=== PATIENT | female | born 1970 | race Caucasian/White ===

== ENCOUNTER 2019-12-27 10:35 | Outpatient (REF) | payer BC, SELFPAY | END 2019-12-27 10:36 | disposition home or self-care (01) | LOC: HO.LNP 10:35 | PROVIDERS: Visit Provider Hospitalist | DX: Z20.828 Contact with and (suspected) exposure to other viral communicable diseases (principal) | CPT/HCPCS: U0003 ==

== ENCOUNTER 2021-05-07 10:26 | Outpatient (REF) | payer BC, SELFPAY ==
[2021-05-07 10:46] LABS: MANUAL DIFF FLAG NO
[2021-05-07 11:17] LABS: Basophils Absolute Auto 0.1 X10*3/uL (0.0-0.2); Basophils Percent Auto 1.1 % (0-2); Eosinophils Absolute Auto 0.4 X10*3/uL (0.0-0.4); Eosinophils Percent Auto 9.3 % (0-4); Hematocrit 41.3 % (37.0-47.0); Hemoglobin 13.4 g/dl (12.0-16.0); Imm Gran Abs Auto 0.02 X10*3/uL (0.00-0.03); Imm Gran Pct Auto 0.4 % (0.0-0.4); Lymphocytes Absolute Auto 1.3 X10*3/uL (1.2-4.9); Lymphocytes Percent Auto 27.5 % (20-40); Mean Corpuscular HGB Conc 32.4 g/dl (31.0-35.0); Mean Corpuscular Hemoglobin 30.7 pg (27.0-33.0); Mean Corpuscular Volume 94.5 fL (80.0-98.0); Mean Platelet Volume 9.5 fL (9.4-12.3); Monocytes Absolute Auto 0.5 X10*3/uL (0.1-1.2); Monocytes Percent Auto 10.1 % (2-11); Neutrophils Absolute Auto 2.3 x10*3/uL (2.0-8.3); Neutrophils Percent Auto 51.6 % (45-73); Platelet Count 229 X10*3/uL (160-400); Red Blood Count 4.37 X10*6/uL (4.20-5.50); Red Cell Distribution Width 12.9 % (11.0-16.0); White Blood Count 4.5 X10*3/uL (4.8-10.8)
[2021-05-07 12:28] LABS: Thyroid Stimulating Hormone 2.72 uIU/mL (0.32-4.0)
[2021-05-07 12:37] LABS: Alanine Aminotransferase 24 U/L (0-31); Albumin Level 4.4 g/dL (3.5-5.0); Alkaline Phosphatase 54 U/L (39-117); Anion Gap 12 (12-20); Aspartate Amino Transferase 19 U/L (5-31); Bilirubin Total 0.3 mg/dL (0.0-1.0); Blood Urea Nitrogen 20 mg/dL (9-16); Calcium 9.9 mg/dL (8.4-10.2); Carbon Dioxide 27 mmol/L (22-29); Chloride 102 mmol/L (96-108); Cholesterol 239 mg/dL; Estimated Glomerular Filt Rate > 60; Glucose Fasting 94 mg/dL (60-99); HDL Cholesterol 75 mg/dL; LDL Cholesterol Calculated 148 mg/dl; Potassium 4.3 mmol/L (3.3-5.1); Sodium 137 mmol/L (135-145); Total Protein 7.2 g/dL (6.5-8.0); Triglycerides 83 mg/dL
== END 2021-05-07 10:27 | disposition home or self-care (01) ==
LOC: HO.LAB 10:26
PROVIDERS: PCP Internal Medicine; Visit Provider Internal Medicine
DX: Z00.00 Encounter for general adult medical examination without abnormal findings (principal); Z13.0 Encounter for screening for diseases of the blood and blood-forming organs and certain disorders involving the immune mechanism
CPT/HCPCS: 36415; 80053; 80061; 84443; 85025

== ENCOUNTER 2022-05-13 08:15 | Day surgery (SDC) | payer BC, SELFPAY ==
[2022-05-13 06:17] VITALS: BMI 27.4
[2022-05-13] MEDS: Lactated Ringers 1,000 ML 100 ML IVCONT (08:17)
[2022-05-13 08:35] VITALS: BP 147/93; PULSE 93; RESP 18; TEMP 36.7; O2SAT 100
--- NOTE | 2022-05-13 08:45 | HO.ANESPROP2 ---
HPI - Anesthesia Eval Consult details Narrative: 51yo female patient for Colonoscopy PMFSH Active Problems Active Problems: All Active Problems (Updated 05/10/22 @ 13:40 by Carolina Blum RN) Depression (Acute) Encounter for screening laboratory testing for COVID-19 virus in asymptomatic patient (Acute) Physical exam, annual (Acute) Encounter for surveillance of abnormal nevi (Acute) Cerumen impaction (Acute) Infection of thumb (Acute) Anxiety (Acute) Past Medical History Medical History Anxiety Asthma IBS (irritable bowel syndrome) Family History Family History Father No problems noted. Mother No problems noted. Brother Menieres disease Sister Bipolar 1 disorder Family/Other Substance use disorder Mental health disorder Family history of problems with anesthesia: No Surgical History Surgical History H/O breast augmentation H/O section H/O umbilical hernia repair H/O: hysterectomy History of lumpectomy History of Problems with Anesthesia: No Social History Social History Housing: Condominium Alcohol intake: current Alcohol intake frequency: holidays/special occasions only Patient Tobacco Use Status: Never used Tobacco e-Cigarette/Vaping Use: Never Used Second Hand Smoke Exposure: No Substance Use Frequency: Daily Are you DNR?: No Advance Directives: No Advance Directives Information Provided: Yes Nutrition Risks: No Nutritional Risk service: No Current occupational status: employed Current occupational exposures/hazards: No Cognitive needs: No Hearing needs: No Vision needs: No Meds Allergies Allergy/AdvReac Type Severity Reaction Status Date / Time citalopram [Celexa] Allergy Intermediate undesired Verified 05/13/22 07:58 effect banana Allergy Anaphylaxis Verified 05/13/22 08:45 cat dander [cats] Allergy Unknown Verified 05/13/22 07:58 dog dander Allergy Unknown Verified 05/13/22 07:58 grass pollen Allergy Unknown Verified 05/13/22 07:58 tree and shrub pollen Allergy Unknown Verified 05/13/22 07:58 dust Allergy Unknown Uncoded 05/13/22 07:58 Active Medications: Current Medications Albuterol Sulfate (Albuterol Sulfate (0.083%) 2.5 Mg/3 Ml Vial.Neb) 2.5 mg INHALE ONCE PRN PRN Reason: Shortness of Breath/Wheezing Lactated Ringer's (Lr) 1,000 mls @ 100 mls/hr IVCONT .Q10H HEIDY Last Admin: 05/13/22 08:17 Dose: 100 mls/hr Sodium Biphosphate/Sodium Phosphate (Sodium Phosphate,[place]-Dibasic 133 Ml Enema) 133 ml CO ONCE PRN PRN Reason: Poor Colonoscopy Prep Results Home Medications Medication Instructions Recorded Confirmed Last Taken Type multivitamin 1 tab PO DAILY 12/13/19 05/13/22 Unknown History cetirizine 10 mg capsule (Zyrtec) 10 mg PO DAILY 12/27/19 05/13/22 Unknown History Exam Exam Date and Time: May 13, 2022 0845 Height,Weight and Vital Signs: Height 5 ft 6 in Weight 77.111 kg Last Vital Signs Temp 98.1 F 05/13/22 08:35 Pulse 93 05/13/22 08:35 Resp 18 05/13/22 08:35 BP 147/93 H 05/13/22 08:35 Pulse Ox 100 05/13/22 08:35 O2 Del Method 05/13/22 08:35 Airway Mallampati Class: II TM Dist: >3cm Neck ROM: Full Loose/Missing/Broken Teeth: No (Denies broken, loose, missing teeth) Heart: RRR Lungs: CTAB Assessment and Plan Assessment Anesthesia Assessment: Anesthesia Plan Discussed and Chart Reviewed Final Anesthetic Review Family History of Problems with Anesthesia: No History of Problems with Anesthesia: No NPO: Yes ASA Class: II Final Preanesthetic Review: No Changes in Pt Med Stat, Meds/Allgs Chart Reviewed, Consent Obtained/Reviewed and Anes Risks/Benef Reviewed Patient Risk: Low Procedure Risk: Low Assessment/Block/Sedation in SS: Assess/Block/Sedation-SS Anesthetic Plan Anesthetic Plan: MAC: Disposition: Standard PACU
--- NOTE | 2022-05-13 09:55 | PM.OP ---
Brief Operative Note Date of Service: 05/13/22 Pre-op diagnosis: Screening Post-op diagnosis: other (Diverticulosis) Procedure: Colonoscopy to the cecum and TI Surgeon: Jori Rios Anesthesia: MAC Was an Fire Prevention Chief used for this Procedure?: No Estimated blood loss (mL): 0 Pathology: none sent Condition: stable Disposition: PACU
[2022-05-13 09:57] VITALS: BP 121/70; PULSE 86; RESP 16; TEMP 36.6; O2SAT 99
[2022-05-13 10:12] VITALS: BP 153/72; PULSE 69; RESP 16; TEMP 36.3; O2SAT 100
--- NOTE | 2022-05-13 22:14 | OP_ITS ---
SURGEON: Jori Riso MD PREOPERATIVE DIAGNOSIS: Colorectal cancer screening. POSTOPERATIVE DIAGNOSIS: PROCEDURE PERFORMED: Colonoscopy to the cecum and terminal ileum. ESTIMATED BLOOD LOSS: COMPLICATIONS: ANESTHESIA: Monitored anesthesia care. ASSISTANTS: SPECIMENS: POSTOPERATIVE DIAGNOSES: Colorectal cancer screening, mild sigmoid diverticulosis and small internal hemorrhoids. INDICATION: The patient presents for evaluation of colorectal cancer screening. Full consent has been obtained from her for this, including risks of bleeding and perforation. DESCRIPTION OF PROCEDURE: The patient was placed in the left lateral decubitus position. The digital rectal exam revealed no abnormalities. The Olympus video pediatric colonoscope was entered into the rectum and advanced easily to the cecum. Once in the cecum, I did identify normal-appearing cecal pouch with appendiceal orifice and a normal-appearing ileocecal valve. The terminal ileum was cannulated and appeared normal. The scope was withdrawn back in the colon. The entire cecum and ileocecal valve appeared normal. The scope was slowly withdrawn assessing all mucosal surfaces carefully. Preparation was excellent. I did not visualize any sign of polyps, colitis, nor angiodysplasia. There was a mild amount of sigmoid diverticulosis. In the rectum, the scope was retroflexed, visualizing small internal hemorrhoids, but no other pathology. The rectal mucosa appeared normal. The scope was straightened out and withdrawn from the patient. She tolerated the procedure well and was returned to the recovery area in stable condition. IMPRESSION: 1. Mild diverticulosis. 2. Small internal hemorrhoids. PLAN: Given today's negative exam and no family history of colorectal cancer, I recommend a repeat colonoscopy in 10 years for further screening. She will otherwise see me on a p.r.n. basis. MD CHUCKY Layne/ADRI / [id number]
== END 2022-05-13 10:30 | disposition home or self-care (01) ==
PROVIDERS: PCP Internal Medicine; Visit Provider Internal Medicine
PROC: 0DJD8ZZ Inspection of Lower Intestinal Tract, Via Natural or Artificial Opening Endoscopic (ICD-10-PCS; CPT 45378; principal; 2022-05-13 09:30)
DX: Z12.11 Encounter for screening for malignant neoplasm of colon (principal); K57.30 Diverticulosis of large intestine without perforation or abscess without bleeding; K64.8 Other hemorrhoids; K58.1 Irritable bowel syndrome with constipation; J45.909 Unspecified asthma, uncomplicated; F41.8 Other specified anxiety disorders; Z79.51 Long term (current) use of inhaled steroids; Z79.899 Other long term (current) drug therapy
CPT/HCPCS: 45378; J2250

== ENCOUNTER 2022-07-30 08:54 | Outpatient (REF) | payer BC, SELFPAY ==
[2022-07-30 09:11] LABS: MANUAL DIFF FLAG NO
[2022-07-30 09:28] LABS: Basophils Absolute Auto 0.1 X10*3/uL (0.0-0.2); Basophils Percent Auto 1.1 % (0-2); Eosinophils Absolute Auto 0.5 X10*3/uL (0.0-0.4); Eosinophils Percent Auto 7.4 % (0-4); Hematocrit 42.5 % (37.0-47.0); Hemoglobin 13.8 g/dl (12.0-16.0); Imm Gran Abs Auto 0.04 X10*3/uL (0.00-0.03); Imm Gran Pct Auto 0.6 % (0.0-0.4); Lymphocytes Absolute Auto 1.5 X10*3/uL (1.2-4.9); Lymphocytes Percent Auto 23.7 % (20-40); Mean Corpuscular HGB Conc 32.5 g/dl (31.0-35.0); Mean Corpuscular Hemoglobin 30.5 pg (27.0-33.0); Mean Platelet Volume 9.5 fL (9.4-12.3); Monocytes Absolute Auto 0.6 X10*3/uL (0.1-1.2); Monocytes Percent Auto 8.6 % (2-11); Neutrophils Absolute Auto 3.8 x10*3/uL (2.0-8.3); Neutrophils Percent Auto 58.6 % (45-73); Platelet Count 254 X10*3/uL (160-400); Red Blood Count 4.52 X10*6/uL (4.20-5.50); Red Cell Distribution Width 12.6 % (11.0-16.0); White Blood Count 6.5 X10*3/uL (4.8-10.8)
[2022-07-30 10:02] LABS: Alanine Aminotransferase 36 U/L (0-31); Albumin Level 4.7 g/dL (3.5-5.0); Alkaline Phosphatase 63 U/L (39-117); Anion Gap 14 (12-20); Aspartate Amino Transferase 19 U/L (5-31); Bilirubin Total 0.6 mg/dL (0.0-1.0); Blood Urea Nitrogen 16 mg/dL (9-16); Calcium 9.6 mg/dL (8.4-10.2); Carbon Dioxide 26 mmol/L (22-29); Chloride 103 mmol/L (96-108); Cholesterol 297 mg/dL; Estimated Glomerular Filt Rate > 60; Glucose Fasting 101 mg/dL (60-99); HDL Cholesterol 74 mg/dL; LDL Cholesterol Calculated 199 mg/dl; Potassium 4.3 mmol/L (3.3-5.1); Sodium 139 mmol/L (135-145); Total Protein 7.7 g/dL (6.5-8.0); Triglycerides 121 mg/dL
[2022-07-30 10:12] LABS: Thyroid Stimulating Hormone 3.04 uIU/mL (0.32-4.0)
== END 2022-07-30 08:55 | disposition home or self-care (01) ==
LOC: HO.LAB 08:54
PROVIDERS: PCP Internal Medicine; Visit Provider Internal Medicine
DX: E78.5 Hyperlipidemia, unspecified (principal); D64.9 Anemia, unspecified; E03.9 Hypothyroidism, unspecified; N28.9 Disorder of kidney and ureter, unspecified
CPT/HCPCS: 36415; 80053; 80061; 84443; 85025

== ENCOUNTER 2022-08-28 13:35 | Outpatient (REF) | payer BC, SELFPAY | END 2022-08-28 13:36 | disposition home or self-care (01) | LOC: HO.LAB 13:35 | PROVIDERS: PCP Internal Medicine; Visit Provider Internal Medicine | DX: R10.9 Unspecified abdominal pain (principal); E03.9 Hypothyroidism, unspecified; N28.9 Disorder of kidney and ureter, unspecified; N39.0 Urinary tract infection, site not specified; E78.5 Hyperlipidemia, unspecified; D64.9 Anemia, unspecified | CPT/HCPCS: 36415; 80048; 80053; 80061; 84443; 85025; 87086 ==

== ENCOUNTER 2022-08-29 09:30 | Outpatient (REF) | payer BC, SELFPAY | END 2022-08-29 09:31 | disposition home or self-care (01) | LOC: HO.WFDLNP 09:30 | PROVIDERS: Visit Provider Internal Medicine | DX: R19.7 Diarrhea, unspecified (principal) | CPT/HCPCS: 87329; 87493; 89055 ==

== ENCOUNTER 2022-08-30 12:22 | Outpatient (REF) | payer BC, SELFPAY | END 2022-08-30 12:23 | disposition home or self-care (01) | LOC: HO.US 12:22 | PROVIDERS: PCP Internal Medicine; Visit Provider Internal Medicine | DX: R10.9 Unspecified abdominal pain (principal) | CPT/HCPCS: 76700 ==

== ENCOUNTER 2022-11-04 10:36 | Outpatient (AMB) | payer BC, SELFPAY ==
[2022-11-04 10:38] VITALS: BP 140/82; PULSE 65; O2SAT 98; BMI 29.4
--- NOTE | 2022-11-04 10:38 | A.OFFPC_ITS ---
Vital Signs 11/04/22 10:38 Height 5 ft 6 in Weight 182 lb BMI 29.4 BP 140/82 H Blood Pressure Location Lt brachial Position Sitting Pulse 65 Pulse Source Pulse Oximeter Pulse Oximetry (%) 98 Oxygen Delivery Method Room Air Intake Visit Reasons: 3mth f/u Investigator Internal Revenue: Not Required per policy Accompanied by: Self / Same As Patient Allergies citalopram [Celexa] Allergy (Intermediate, Verified 11/04/22 10:39) undesired effect banana Allergy (Verified 11/04/22 10:39) Anaphylaxis cat dander [cats] Allergy (Verified 11/04/22 10:39) Unknown dog dander Allergy (Verified 11/04/22 10:39) Unknown grass pollen Allergy (Verified 11/04/22 10:39) Unknown tree and shrub pollen Allergy (Verified 11/04/22 10:39) Unknown dust Allergy (Uncoded 11/04/22 10:39) Unknown Medication List - Last Reconciled 11/04/22 by Lloyd Mcmullen MD albuterol sulfate 90 mcg/actuation (ProAir HFA) 2 puffs inhalation Q6H PRN 30 days alprazolam 1 mg PO Q8H PRN cetirizine (Zyrtec) 10 mg PO DAILY citalopram 40 mg PO DAILY dicyclomine 20 mg PO QID multivitamin 1 tab PO DAILY Tobacco use date assessed: 07/30/22 Dental Screening Dental Screen Date: 11/04/22 Did you have a dental visit in the last 12 months?: Yes Did you have a dental problem in the last 6 months where you did not have access to dental care?: No Was dental information given to patient?: Patient has dentist HPI 3mth f/u HPI Details depression on Rx; doing well at this time; compliant with meds [facility] Medical History IBS (irritable bowel syndrome) Asthma Anxiety Surgical History H/O breast augmentation H/O umbilical hernia repair H/O: hysterectomy H/O section History of lumpectomy Family History Father No problems noted. Mother No problems noted. Brother Menieres disease Sister Bipolar 1 disorder Family/Other Substance use disorder Mental health disorder Social History Housing: Condominium Alcohol intake: current Alcohol intake frequency: holidays/special occasions only Patient Tobacco Use Status: Never used Tobacco e-Cigarette/Vaping Use: Never Used Second Hand Smoke Exposure: No service: No Current occupational status: employed Current occupational exposures/hazards: No Cognitive needs: No Hearing needs: No Vision needs: No Questionnaire PHQ-9 Over the last 2 weeks, how often have you been bothered by any of the following problems? 1. Little interest or pleasure in doing things: several days 2. Feeling down, depressed, or hopeless: more than half the days 3. Trouble falling or staying asleep, or sleeping too much: nearly every day 4. Feeling tired or having little energy: several days 5. Poor appetite or overeating: several days 6. Feeling bad about yourself - or that you are a failure or have let yourself or your family down: not at all 7. Trouble concentrating on things, such as reading the newspaper or watching television: more than half the days 8. Moving or speaking so slowly that other people could have noticed. Or the opposite - being so fidgety or restless that you have been moving around a lot more than usual: not at all 9. Thoughts that you would be better off or of hurting yourself in some way: not at all Total score: 10 Depression Screening Interpretation: Positive 20189 - PHQ-9 Billing: Yes Source: Developed by Drs. Jori Wagoner, Fozia Salcedo, Suraj Szymanski and colleagues, with an educational anthony from [employer]. Thrive Questionnaire Date Thrive assessed: 02/26/22 AUDIT C Alcohol Use Questionnaire (AUDIT-C) 1. How often do you have a drink containing alcohol?: 2-3 times a week 2. How many drinks containing alcohol do you have on a typical day when you are drinking?: 1 or 2 3. How often do you have six or more drinks on one occasion?: Never Total Score: 3 Score Reviewed/Action Taken: Yes BRICE-7 AMB Questionnaire BRICE-7 Date BRICE - 7 assessed: 02/26/22 Source: Developed by Drs. Jori Wagoner, Fozia Salcedo, Suraj Szymanski and colleagues, with an educational anthony from [employer]. BRICE-7 Assessment Billing BRICE-7 Assessment Tool: BRICE-7 Assessment 39693 Review of Systems Const Denies chills, Denies headache(s) and Denies weight loss ENT Denies headache(s) Card Denies chest pain, Denies syncope, Denies irregular heart rhythm and Denies dyspnea Resp Denies chest congestion, Denies cough and Denies dyspnea GI Denies abdominal pain, Denies change in stool character, Denies nausea and Denies vomiting Musc Denies deformity and Denies joint swelling Neuro Denies syncope and Denies headache(s) Physical exam (Primary Care) Vital Signs: Last Vital Signs Pulse 65 11/04/22 10:38 BP 140/82 H 11/04/22 10:38 Pulse Ox 98 11/04/22 10:38 Oxygen Delivery Method Room Air 11/04/22 10:38 BMI result Body Mass Index 29.4 Tobacco/Smoking Status: Tobacco use Status Tobacco use date assessed 07/30/22 11/04/22 10:42 Patient Tobacco Use Status Never used Tobacco 11/04/22 10:42 e-Cigarette/Vaping Use Never Used 11/04/22 10:42 PHQ-9: PHQ-9 Score PHQ-9: Total score 10 11/04/22 10:42 Depression Screening Interpretation: Positive Thrive Assessment: Date of Thrive Assessment Date Thrive assessed 02/26/22 11/04/22 10:42 Const General: cooperative, comfortable, no acute distress and alert Neck Neck: Yes no lymphadenopathy Thyroid: Thyroid normal Resp Effort & Inspection: normal respiratory effort Auscultation: clear to auscultation bilaterally Percussion: percussion normal Cardio Jugular venous distension: no JVD Palpation: normal PMI Rate: regular rate Rhythm: regular rhythm Heart sounds: S1 normal heart sound present and S2 normal heart sound present GI Inspection: Yes normal to inspection Palpation (GI): No hepatosplenomegaly present Skin General skin exam: no rashes or lesions noted Extrem General: Yes no clubbing, cyanosis or edema Assessment and Plan Assessment & Plan (1) Depression: Code(s): F32.9 - Major depressive disorder, single episode, unspecified Plan: stable; same rx Orders: Orders Lipid Panel Today E78.5 - Hyperlipidemia, unspecified Comprehensive Roy. Panel Fast Today N28.9 - Disorder of kidney and ureter, unspecified Complete Blood Count Auto Diff Today D64.9 - Anemia, unspecified Thyroid Stimulating Hormone Today E03.9 - Hypothyroidism, unspecified Coding Level of Care Code Est Pt Level 3 (24465) Diagnoses Depression F32.9 Additional Codes BRICE-7 Assessment Billing - BRICE-7 Assessment Tool: BRICE-7 Assessment 58002 ([id number])
== END 2022-11-04 11:06 | disposition home or self-care (01) ==
PROVIDERS: PCP Internal Medicine; Visit Provider Internal Medicine
DX: F32.9 Major depressive disorder, single episode, unspecified (principal)
CPT/HCPCS: 99213

== ENCOUNTER 2023-02-03 10:29 | Outpatient (AMB) | payer BC, SELFPAY ==
[2023-02-03 10:32] VITALS: BP 144/82; PULSE 70; O2SAT 98; BMI 28.1
--- NOTE | 2023-02-03 10:32 | MHC.PC.OV ---
Vital Signs 02/03/23 10:32 Height 5 ft 6 in Weight 174 lb BMI 28.1 BP 144/82 H Blood Pressure Location Lt brachial Position Sitting Pulse 70 Pulse Source Pulse Oximeter Pulse Oximetry (%) 98 Oxygen Delivery Method Room Air Intake Visit Reasons: 3mth f/u Television Program Director Required: No Manager Business Intelligence: Not Required per policy Accompanied by: Self / Same As Patient Allergies citalopram [Celexa] Allergy (Intermediate, Verified 02/03/23 10:33) undesired effect banana Allergy (Verified 02/03/23 10:33) Anaphylaxis cat dander [cats] Allergy (Verified 02/03/23 10:33) Unknown dog dander Allergy (Verified 02/03/23 10:33) Unknown grass pollen Allergy (Verified 02/03/23 10:33) Unknown tree and shrub pollen Allergy (Verified 02/03/23 10:33) Unknown dust Allergy (Uncoded 02/03/23 10:33) Unknown Medication List - Last Reconciled 02/03/23 by Lloyd Mcmullen MD albuterol sulfate 90 mcg/actuation (ProAir HFA) 2 puffs inhalation Q6H PRN 30 days alprazolam 1 mg PO Q8H PRN cetirizine (Zyrtec) 10 mg PO DAILY citalopram 40 mg PO DAILY dicyclomine 20 mg PO QID multivitamin 1 tab PO DAILY Tobacco use date assessed: 07/30/22 Dental Screening Dental Screen Date: 02/03/23 Did you have a dental visit in the last 12 months?: Yes Did you have a dental problem in the last 6 months where you did not have access to dental care?: No Was dental information given to patient?: Patient has dentist HPI 3mth f/u HPI Details panc disorder with depression; doing very well PFSH Medical History IBS (irritable bowel syndrome) Asthma Anxiety Surgical History H/O breast augmentation H/O umbilical hernia repair H/O: hysterectomy H/O section History of lumpectomy Family History Father No problems noted. Mother No problems noted. Brother Menieres disease Sister Bipolar 1 disorder Family/Other Substance use disorder Mental health disorder Social History Housing: Condominium Alcohol intake: current Alcohol intake frequency: holidays/special occasions only Patient Tobacco Use Status: Never used Tobacco e-Cigarette/Vaping Use: Never Used Second Hand Smoke Exposure: No service: No Current occupational status: employed Current occupational exposures/hazards: No Cognitive needs: No Hearing needs: No Vision needs: No Questionnaire PHQ-9 Over the last 2 weeks, how often have you been bothered by any of the following problems? Depression Screening Interpretation: Positive Depression Screening Done: Yes Source: Developed by Drs. Jori Wagoner, Fozia Salcedo, Suraj Szymanski and colleagues, with an educational anthony from [employer]. Thrive Questionnaire Date Thrive assessed: 02/26/22 BRICE-7 AMB Questionnaire BRICE-7 Date BRICE - 7 assessed: 02/26/22 Source: Developed by Drs. Jori Wagoner, Fozia Salcedo, Suraj Szymanski and colleagues, with an educational anthony from [employer]. Review of Systems Const Denies chills, Denies headache(s) and Denies weight loss ENT Denies headache(s) Card Denies chest pain, Denies syncope, Denies irregular heart rhythm and Denies dyspnea Resp Denies chest congestion, Denies cough and Denies dyspnea GI Denies abdominal pain, Denies change in stool character, Denies nausea and Denies vomiting Musc Denies deformity and Denies joint swelling Neuro Denies syncope and Denies headache(s) Physical exam (Primary Care) Vital Signs: Last Vital Signs Pulse 70 02/03/23 10:32 BP 144/82 H 02/03/23 10:32 Pulse Ox 98 02/03/23 10:32 Oxygen Delivery Method Room Air 02/03/23 10:32 BMI result Body Mass Index 28.1 Tobacco/Smoking Status: Tobacco use Status Tobacco use date assessed 07/30/22 02/03/23 10:36 Patient Tobacco Use Status Never used Tobacco 02/03/23 10:36 e-Cigarette/Vaping Use Never Used 02/03/23 10:36 Depression Screening Interpretation: Positive Thrive Assessment: Date of Thrive Assessment Date Thrive assessed 02/26/22 02/03/23 10:36 Const General: cooperative, comfortable, no acute distress and alert Neck Neck: Yes no lymphadenopathy Thyroid: Thyroid normal Resp Effort & Inspection: normal respiratory effort Auscultation: clear to auscultation bilaterally Percussion: percussion normal Cardio Jugular venous distension: no JVD Palpation: normal PMI Rate: regular rate Rhythm: regular rhythm Heart sounds: S1 normal heart sound present and S2 normal heart sound present GI Inspection: Yes normal to inspection Palpation (GI): No hepatosplenomegaly present Skin General skin exam: no rashes or lesions noted Extrem General: Yes no clubbing, cyanosis or edema Assessment and Plan Assessment & Plan (1) Depression: Code(s): F32.9 - Major depressive disorder, single episode, unspecified Plan: stable; same rx Orders: Orders Influenza [id number] Immunization Today Z23 - Encounter for immunization Medications: New flu vacc [id number] 6mos up(PF) 0.5 mL IM ONCE 0.5 mL 0RF Z23 - Encounter for immunization Coding Level of Care Code Est Pt Level 3 (50637) Diagnoses Depression F32.9
== END 2023-02-03 11:03 | disposition home or self-care (01) ==
PROVIDERS: PCP Internal Medicine; Visit Provider Internal Medicine
DX: F33.9 Major depressive disorder, recurrent, unspecified (principal)
CPT/HCPCS: 99213

== ENCOUNTER 2023-02-26 08:38 | Outpatient (REF) | payer BC, SELFPAY ==
[2023-02-26 11:35] LABS: MANUAL DIFF FLAG NO
[2023-02-26 11:54] LABS: Basophils Percent Auto 0.9 % (0-2); Eosinophils Absolute Auto 0.4 X10*3/uL (0.0-0.4); Eosinophils Percent Auto 9.1 % (0-4); Hematocrit 40.2 % (37.0-47.0); Hemoglobin 13.4 g/dl (12.0-16.0); Imm Gran Abs Auto 0.01 X10*3/uL (0.00-0.03); Imm Gran Pct Auto 0.2 % (0.0-0.4); Lymphocytes Absolute Auto 1.4 X10*3/uL (1.2-4.9); Lymphocytes Percent Auto 28.7 % (20-40); Mean Corpuscular HGB Conc 33.3 g/dl (31.0-35.0); Mean Corpuscular Hemoglobin 29.6 pg (27.0-33.0); Mean Corpuscular Volume 88.9 fL (80.0-98.0); Mean Platelet Volume 10.3 fL (9.4-12.3); Monocytes Absolute Auto 0.4 X10*3/uL (0.1-1.2); Monocytes Percent Auto 7.9 % (2-11); Neutrophils Absolute Auto 2.5 x10*3/uL (2.0-8.3); Neutrophils Percent Auto 53.2 % (45-73); Platelet Count 277 X10*3/uL (160-400); Red Blood Count 4.52 X10*6/uL (4.20-5.50); Red Cell Distribution Width 12.1 % (11.0-16.0); White Blood Count 4.7 X10*3/uL (4.8-10.8)
[2023-02-26 12:51] LABS: Alanine Aminotransferase 16 U/L (0-31); Albumin Level 4.5 g/dL (3.5-5.0); Alkaline Phosphatase 48 U/L (39-117); Anion Gap 12 (12-20); Aspartate Amino Transferase 13 U/L (5-31); Bilirubin Total 0.5 mg/dL (0.0-1.0); Blood Urea Nitrogen 11 mg/dL (9-16); Calcium 9.3 mg/dL (8.4-10.2); Carbon Dioxide 25 mmol/L (22-29); Chloride 105 mmol/L (96-108); Cholesterol 189 mg/dL (<200); Estimated Glomerular Filt Rate > 60; Glucose Fasting 106 mg/dL (60-99); HDL Cholesterol 46 mg/dL (>40); LDL Cholesterol Calculated 128 mg/dL (<100); Sodium 138 mmol/L (135-145); Triglycerides 79 mg/dL (<150)
[2023-02-26 12:56] LABS: Thyroid Stimulating Hormone 2.05 uIU/mL (0.32-4.0)
== END 2023-02-26 08:39 | disposition home or self-care (01) ==
LOC: HO.WFDLDS 08:38
PROVIDERS: Visit Provider Internal Medicine
DX: D64.9 Anemia, unspecified (principal); E78.5 Hyperlipidemia, unspecified; N28.9 Disorder of kidney and ureter, unspecified; E03.9 Hypothyroidism, unspecified
CPT/HCPCS: 36415; 80053; 80061; 84443; 85025

== ENCOUNTER 2023-02-27 09:50 | Outpatient (AMB) | payer BC, SELFPAY ==
[2023-02-27 09:53] VITALS: BP 140/82; PULSE 72; O2SAT 98; BMI 27.8
--- NOTE | 2023-02-27 09:53 | MHC.PC.OV ---
Vital Signs 02/27/23 09:53 Height 5 ft 6 in Weight 172 lb BMI 27.8 BP 140/82 H Blood Pressure Location Lt brachial Position Sitting Pulse 72 Pulse Source Pulse Oximeter Pulse Oximetry (%) 98 Oxygen Delivery Method Room Air Intake Visit Reasons: Annual Exam Floor Winder Required: No Physician Non Invasive Cardiologist: Not Required per policy Accompanied by: Self / Same As Patient Allergies citalopram [Celexa] Allergy (Intermediate, Verified 02/27/23 09:53) undesired effect banana Allergy (Verified 02/27/23 09:53) Anaphylaxis cat dander [cats] Allergy (Verified 02/27/23 09:53) Unknown dog dander Allergy (Verified 02/27/23 09:53) Unknown grass pollen Allergy (Verified 02/27/23 09:53) Unknown tree and shrub pollen Allergy (Verified 02/27/23 09:53) Unknown dust Allergy (Uncoded 02/27/23 09:53) Unknown Medication List - Last Reconciled 02/27/23 by Lloyd Mcmullen MD albuterol sulfate 90 mcg/actuation (ProAir HFA) 2 puffs inhalation Q6H PRN 30 days alprazolam 1 mg PO Q8H PRN cetirizine (Zyrtec) 10 mg PO DAILY citalopram 40 mg PO DAILY dicyclomine 20 mg PO QID metformin ER 1,000 mg PO BID multivitamin 1 tab PO DAILY Tobacco use date assessed: 07/30/22 Dental Screening Dental Screen Date: 02/27/23 Did you have a dental visit in the last 12 months?: Yes Did you have a dental problem in the last 6 months where you did not have access to dental care?: No Was dental information given to patient?: Patient has dentist HPI Annual Exam HPI Details asthma and anxiety; on metformin from another provider for weight loss [facility] Medical History (Updated 02/27/23 @ 11:10 by Lloyd Mcmullen MD) IBS (irritable bowel syndrome) Asthma Anxiety Surgical History H/O breast augmentation H/O umbilical hernia repair H/O: hysterectomy H/O section History of lumpectomy Family History Father No problems noted. Mother No problems noted. Brother Menieres disease Sister Bipolar 1 disorder Family/Other Substance use disorder Mental health disorder Social History Housing: Condominium Alcohol intake: current Alcohol intake frequency: holidays/special occasions only Patient Tobacco Use Status: Never used Tobacco e-Cigarette/Vaping Use: Never Used Second Hand Smoke Exposure: No service: No Current occupational status: employed Current occupational exposures/hazards: No Cognitive needs: No Hearing needs: No Vision needs: No Questionnaire PHQ-9 Over the last 2 weeks, how often have you been bothered by any of the following problems? 1. Little interest or pleasure in doing things: not at all 2. Feeling down, depressed, or hopeless: not at all 3. Trouble falling or staying asleep, or sleeping too much: not at all 4. Feeling tired or having little energy: not at all 5. Poor appetite or overeating: not at all 6. Feeling bad about yourself - or that you are a failure or have let yourself or your family down: not at all 7. Trouble concentrating on things, such as reading the newspaper or watching television: not at all 8. Moving or speaking so slowly that other people could have noticed. Or the opposite - being so fidgety or restless that you have been moving around a lot more than usual: not at all 9. Thoughts that you would be better off or of hurting yourself in some way: not at all Total score: 0 Depression Screening Interpretation: Negative Depression Screening Done: Yes 63394 - PHQ-9 Billing: Yes Source: Developed by Drs. Jori Wagoner, Fozia Salcedo, Suraj Szymanski and colleagues, with an educational anthony from [employer]. Thrive Questionnaire Date Thrive assessed: 02/27/23 I am a: Patient What is your living situation today?: I have a steady place to live Within the past 12 months, did the food you bought not last and you didn't have the money to get more?: Never true Within the past 12 months, did you worry whether your food would run out before you got money to buy more?: Never true Do you have trouble paying for medicines?: No Do you have trouble getting transportation to medical appointments?: No Do you have trouble paying your heating and electricity bill?: No Do you have trouble taking care of your child, family member or friend?: No Do you have trouble with day-to-day activities such as bathing, preparing meals, shopping, managing finances, etc.?: No Are you currently unemployed and looking for a job?: No Are you interested in more education?: No Please select the resources that you would like help with: None AUDIT C Alcohol Use Questionnaire (AUDIT-C) 1. How often do you have a drink containing alcohol?: 2-3 times a week 2. How many drinks containing alcohol do you have on a typical day when you are drinking?: 1 or 2 3. How often do you have six or more drinks on one occasion?: Never Total Score: 3 Score Reviewed/Action Taken: Yes BRICE-7 AMB Questionnaire BRICE-7 Date BRICE - 7 assessed: 02/27/23 Feeling nervous, anxious, or on edge: 0 = Not at all Not being able to stop or control worryin = Not at all Worrying too much about different things: 0 = Not at all Trouble relaxin = Not at all Being so restless that it is hard to sit still: 0 = Not at all Becoming easily annoyed or irritable: 0 = Not at all Feeling afraid as if something awful might happen: 0 = Not at all Total BRICE-7 score (0-4 normal; 5-9 mild; 10-14 moderate; 15-21 severe): 0 Source: Developed by Drs. Jori Wagoner, Fozia Salcedo, Suraj Szymanski and colleagues, with an educational anthony from [employer]. BRICE-7 Assessment Billing BRICE-7 Assessment Tool: BRICE-7 Assessment 06375 Review of Systems Const Denies chills, Denies fatigue, Denies headache(s) and Denies weight loss Eyes Denies change in vision, Denies diplopia and Denies eye pain ENT Denies vertigo, Denies dizziness, Denies headache(s) and Denies nasal discharge Card Denies chest pain, Denies rapid heart rate and Denies dyspnea on exertion Resp Denies chest congestion, Denies cough, Denies pain with cough and Denies dyspnea on exertion GI Denies abdominal pain, Denies hematochezia and Denies change in bowel habits Musc Denies myalgias, Denies arthralgias and Denies joint swelling Skin/Breast Denies lesions and Denies unusual bruising Neuro Denies vertigo, Denies dizziness, Denies headache(s) and Denies focal weakness Endo Denies fatigue Physical exam (Primary Care) Vital Signs: Last Vital Signs Pulse 72 02/27/23 09:53 BP 140/82 H 02/27/23 09:53 Pulse Ox 98 02/27/23 09:53 Oxygen Delivery Method Room Air 02/27/23 09:53 BMI result Body Mass Index 27.8 Tobacco/Smoking Status: Tobacco use Status Tobacco use date assessed 07/30/22 02/27/23 09:58 Patient Tobacco Use Status Never used Tobacco 02/27/23 09:58 e-Cigarette/Vaping Use Never Used 02/27/23 09:58 PHQ-9: PHQ-9 Score PHQ-9: Total score 0 02/27/23 09:58 Depression Screening Interpretation: Negative Thrive Assessment: Date of Thrive Assessment Date Thrive assessed 02/27/23 02/27/23 09:58 Const General: cooperative, healthy appearing and no acute distress Orientation/consciousness: oriented to person, oriented to place and oriented to time HENMT Head: Yes normal to inspection, Yes normocephalic and Yes atraumatic Mouth: Normal oral and palatal mucosa present and tongue normal Throat: Yes posterior oropharynx normal and Yes uvula midline Eyes General: appearance normal, both eyes and all related structures Neck Neck: Yes normal visual inspection, Yes full ROM and Yes no lymphadenopathy Thyroid: Thyroid normal Carotids: normal carotid upstroke Chest Chest palpation & inspection: normal inspection of the chest Resp Effort & Inspection: normal respiratory effort and able to speak in complete sentences Auscultation: clear to auscultation bilaterally Cardio Jugular venous distension: no JVD Palpation: normal PMI Rate: regular rate Rhythm: regular rhythm Heart sounds: S1 normal heart sound present and S2 normal heart sound present GI Inspection: Yes normal to inspection Palpation (GI): Soft to palpation and No hepatosplenomegaly present Auscultation: normal bowel sounds General: Yes no CVA tenderness Back/Spine/Pelvis Back: no CVA tenderness Skin General skin exam: no rashes or lesions noted Neuro General: oriented to person, oriented to place and oriented to time Extrem General: Yes normal to inspection and Yes full ROM Assessment and Plan Assessment & Plan (1) Physical exam, annual: Code(s): Z00.00 - Encounter for general adult medical examination without abnormal findings Plan: stable (2) Anxiety: Code(s): F41.9 - Anxiety disorder, unspecified Plan: stable; same rx (3) Asthma: Code(s): J45.909 - Unspecified asthma, uncomplicated Plan: stable; same rx Coding Level of Care Code Est Pt Prev Care 40-64y(88649) Diagnoses Physical exam, annual Z00.00 Anxiety F41.9 Asthma J45.909 Additional Codes BRICE-7 Assessment Billing - BRICE-7 Assessment Tool: BRICE-7 Assessment 27179 ([id number])
== END 2023-02-27 10:29 | disposition home or self-care (01) ==
PROVIDERS: PCP Internal Medicine; Visit Provider Internal Medicine
DX: Z00.00 Encounter for general adult medical examination without abnormal findings (principal); F41.9 Anxiety disorder, unspecified; J45.909 Unspecified asthma, uncomplicated
CPT/HCPCS: 99396

== ENCOUNTER 2023-04-25 09:25 | Outpatient (AMB) | payer BC, SELFPAY ==
[2023-04-25 09:26] VITALS: BP 139/90; PULSE 83; BMI 26.6
--- NOTE | 2023-04-25 09:26 | MHC.PC.OV ---
Vital Signs 04/25/23 09:26 Height 5 ft 6 in Weight 165 lb BMI 26.6 BP 139/90 H Blood Pressure Location Lt brachial Position Sitting Pulse 83 Pulse Source Pulse Oximeter Oxygen Delivery Method Room Air Intake Visit Reasons: Migraines Waiter Waitress Required: No Education Program Associate: Not Required per policy Accompanied by: Self / Same As Patient Allergies citalopram [Celexa] Allergy (Intermediate, Verified 04/25/23 09:26) undesired effect banana Allergy (Verified 04/25/23 09:26) Anaphylaxis cat dander [cats] Allergy (Verified 04/25/23 09:26) Unknown dog dander Allergy (Verified 04/25/23 09:26) Unknown grass pollen Allergy (Verified 04/25/23 09:) Unknown tree and shrub pollen Allergy (Verified 04/25/23 09:) Unknown dust Allergy (Uncoded 04/25/23 09:) Unknown Medication List - Last Reconciled 04/25/23 by Lloyd Mcmullen MD albuterol sulfate 90 mcg/actuation (ProAir HFA) 2 puffs inhalation Q6H PRN 30 days alprazolam 1 mg PO Q8H PRN cetirizine (Zyrtec) 10 mg PO DAILY citalopram 40 mg PO DAILY dicyclomine 20 mg PO QID metformin ER 1,000 mg PO BID multivitamin 1 tab PO DAILY Tobacco use date assessed: 04/25/23 Dental Screening Dental Screen Date: 04/25/23 Did you have a dental visit in the last 12 months?: Yes Did you have a dental problem in the last 6 months where you did not have access to dental care?: No Was dental information given to patient?: Patient has dentist HPI Migraines HPI Details tension headaches from job related stress PFSH Medical History (Updated 04/25/23 @ 10:18 by Lloyd Mcmullen MD) IBS (irritable bowel syndrome) Asthma Anxiety Surgical History H/O breast augmentation H/O umbilical hernia repair H/O: hysterectomy H/O section History of lumpectomy Family History Father No problems noted. Mother No problems noted. Brother Menieres disease Sister Bipolar 1 disorder Family/Other Substance use disorder Mental health disorder Social History Housing: Condominium Alcohol intake: current Alcohol intake frequency: holidays/special occasions only Patient Tobacco Use Status: Never used Tobacco e-Cigarette/Vaping Use: Never Used Second Hand Smoke Exposure: No service: No Current occupational status: employed Current occupational exposures/hazards: No Cognitive needs: No Hearing needs: No Vision needs: No Questionnaire Thrive Questionnaire Date Thrive assessed: 02/27/23 BRICE-7 AMB Questionnaire BRICE-7 Date BRICE - 7 assessed: 02/27/23 Source: Developed by Drs. Jori Wagoner, Fozia Salcedo, Suraj Szymanski and colleagues, with an educational anthony from [employer]. Review of Systems Const Denies chills Card Denies chest pain, Denies syncope, Denies irregular heart rhythm and Denies dyspnea Resp Denies chest congestion, Denies cough and Denies dyspnea GI Denies abdominal pain, Denies change in stool character, Denies nausea and Denies vomiting Musc Denies deformity and Denies joint swelling Neuro Denies syncope Physical exam (Primary Care) Vital Signs: Last Vital Signs Pulse 83 04/25/23 09:26 BP 139/90 H 04/25/23 09:26 Oxygen Delivery Method Room Air 04/25/23 09:26 BMI result Body Mass Index 26.6 Tobacco/Smoking Status: Tobacco use Status Tobacco use date assessed 04/25/23 04/25/23 09:32 Patient Tobacco Use Status Never used Tobacco 04/25/23 09:32 e-Cigarette/Vaping Use Never Used 04/25/23 09:32 Thrive Assessment: Date of Thrive Assessment Date Thrive assessed 02/27/23 04/25/23 09:32 Const General: cooperative, comfortable, no acute distress and alert Neck Neck: Yes no lymphadenopathy Thyroid: Thyroid normal Resp Effort & Inspection: normal respiratory effort Auscultation: clear to auscultation bilaterally Percussion: percussion normal Cardio Jugular venous distension: no JVD Palpation: normal PMI Rate: regular rate Rhythm: regular rhythm Heart sounds: S1 normal heart sound present and S2 normal heart sound present GI Inspection: Yes normal to inspection Palpation (GI): No hepatosplenomegaly present Skin General skin exam: no rashes or lesions noted Extrem General: Yes no clubbing, cyanosis or edema Assessment and Plan Assessment & Plan (1) Headache: Code(s): R51.9 - Headache, unspecified Plan: rx Medications: New cyclobenzaprine 10 mg PO TID PRN 30 tabs 2RF muscle spasm Coding Level of Care Code Est Pt Level 3 (88714) Diagnoses Headache R51.9
== END 2023-04-25 10:02 | disposition home or self-care (01) ==
PROVIDERS: PCP Internal Medicine; Visit Provider Internal Medicine
DX: R51.9 Headache, unspecified (principal)
CPT/HCPCS: 99213

== ENCOUNTER 2023-05-29 14:01 | Outpatient (AMB) | payer BC, SELFPAY ==
[2023-05-29 14:12] VITALS: BP 130/90; PULSE 70; O2SAT 98; BMI 26.1
--- NOTE | 2023-05-29 14:12 | A.OFFPC_ITS ---
Vital Signs 05/29/23 14:12 Height 5 ft 6 in Weight 162 lb BMI 26.1 BP 130/90 H Blood Pressure Location Lt brachial Position Sitting Pulse 70 Pulse Source Pulse Oximeter Pulse Oximetry (%) 98 Oxygen Delivery Method Room Air Intake Visit Reasons: 3mth f/u Director Of Community Education Required: No Mental Hygiene Consultant: Present Accompanied by: Self / Same As Patient Allergies citalopram [Celexa] Allergy (Intermediate, Verified 05/29/23 14:15) undesired effect banana Allergy (Verified 05/29/23 14:15) Anaphylaxis cat dander [cats] Allergy (Verified 05/29/23 14:15) Unknown dog dander Allergy (Verified 05/29/23 14:15) Unknown grass pollen Allergy (Verified 05/29/23 14:15) Unknown tree and shrub pollen Allergy (Verified 05/29/23 14:15) Unknown dust Allergy (Uncoded 05/29/23 14:15) Unknown Medication List - Last Reconciled 05/30/23 by Lloyd Mcmullen MD albuterol sulfate 90 mcg/actuation (ProAir HFA) 2 puffs inhalation Q6H PRN 30 days alprazolam 1 mg PO Q8H PRN cetirizine (Zyrtec) 10 mg PO DAILY citalopram 40 mg PO DAILY cyclobenzaprine 10 mg PO TID PRN dicyclomine 20 mg PO QID metformin ER 1,000 mg PO BID multivitamin 1 tab PO DAILY Tobacco use date assessed: 04/25/23 Dental Screening Dental Screen Date: 04/25/23 HPI 3mth f/u HPI Details panic disorder and anxiety; job related; doing well and coping well PFSH Medical History (Updated 04/25/23 @ 10:18 by Lloyd Mcmullen MD) IBS (irritable bowel syndrome) Asthma Anxiety Surgical History H/O breast augmentation H/O umbilical hernia repair H/O: hysterectomy H/O section History of lumpectomy Family History Father No problems noted. Mother No problems noted. Brother Menieres disease Sister Bipolar 1 disorder Family/Other Substance use disorder Mental health disorder Social History (Reviewed 02/27/23 @ 09:53 by KIM Barajas [facility] Alcohol intake: current Alcohol intake frequency: holidays/special occasions only Patient Tobacco Use Status: Never used Tobacco e-Cigarette/Vaping Use: Never Used Second Hand Smoke Exposure: No service: No Current occupational status: employed Current occupational exposures/hazards: No Cognitive needs: No Hearing needs: No Vision needs: Yes Questionnaire Thrive Questionnaire Date Thrive assessed: 02/27/23 BRICE-7 AMB Questionnaire BRICE-7 Date BRICE - 7 assessed: 02/27/23 Source: Developed by Drs. Jori Wagoner, Fozia Salcedo, Suraj Szymanski and colleagues, with an educational anthony from [employer]. Review of Systems Const Denies chills, Denies headache(s) and Denies weight loss ENT Denies headache(s) Card Denies chest pain, Denies syncope, Denies irregular heart rhythm and Denies dyspnea Resp Denies chest congestion, Denies cough and Denies dyspnea GI Denies abdominal pain, Denies change in stool character, Denies nausea and Denies vomiting Musc Denies deformity and Denies joint swelling Neuro Denies syncope and Denies headache(s) Physical exam (Primary Care) Vital Signs: Last Vital Signs Pulse 70 05/29/23 14:12 BP 130/90 H 05/29/23 14:12 Pulse Ox 98 05/29/23 14:12 Oxygen Delivery Method Room Air 05/29/23 14:12 BMI result Body Mass Index 26.1 Tobacco/Smoking Status: Tobacco use Status Tobacco use date assessed 04/25/23 05/29/23 14:14 Patient Tobacco Use Status Never used Tobacco 05/29/23 14:14 e-Cigarette/Vaping Use Never Used 05/29/23 14:14 Thrive Assessment: Date of Thrive Assessment Date Thrive assessed 02/27/23 05/29/23 14:14 Const General: cooperative, comfortable, no acute distress and alert Neck Neck: Yes no lymphadenopathy Thyroid: Thyroid normal Resp Effort & Inspection: normal respiratory effort Auscultation: clear to auscultation bilaterally Percussion: percussion normal Cardio Jugular venous distension: no JVD Palpation: normal PMI Rate: regular rate Rhythm: regular rhythm Heart sounds: S1 normal heart sound present and S2 normal heart sound present GI Inspection: Yes normal to inspection Palpation (GI): No hepatosplenomegaly present Skin General skin exam: no rashes or lesions noted Extrem General: Yes no clubbing, cyanosis or edema Assessment and Plan Assessment & Plan (1) Panic disorder: Code(s): F41.0 - Panic disorder [episodic paroxysmal anxiety] Plan: stable; same rx Coding Level of Care Code Est Pt Level 3 (79827) Diagnoses Panic disorder F41.0
== END 2023-05-29 14:46 | disposition home or self-care (01) ==
PROVIDERS: PCP Internal Medicine; Visit Provider Internal Medicine
DX: F41.0 Panic disorder [episodic paroxysmal anxiety] (principal)
CPT/HCPCS: 99213

== ENCOUNTER 2023-12-01 13:23 | Outpatient (AMB) | payer BC, SELFPAY ==
[2023-12-01 13:24] VITALS: BP 134/78; PULSE 93; O2SAT 96; BMI 27.0
--- NOTE | 2023-12-01 13:24 | A.OFFPC_ITS ---
Vital Signs 12/01/23 13:24 Height 5 ft 6 in Weight 167 lb BMI 27.0 BP 134/78 Blood Pressure Location Lt brachial Position Sitting Pulse 93 Pulse Source Pulse Oximeter Pulse Oximetry (%) 96 Oxygen Delivery Method Room Air Intake Visit Reasons: 6mof\u Intake Note: Pt reports having sling surgery 11/10/23. Director Of Radio Services Required: No Accompanied by: Self / Same As Patient Allergies citalopram [Celexa] Allergy (Intermediate, Verified 05/29/23 14:15) undesired effect banana Allergy (Verified 05/29/23 14:15) Anaphylaxis cat dander [cats] Allergy (Verified 05/29/23 14:15) Unknown dog dander Allergy (Verified 05/29/23 14:15) Unknown grass pollen Allergy (Verified 05/29/23 14:15) Unknown tree and shrub pollen Allergy (Verified 05/29/23 14:15) Unknown dust Allergy (Uncoded 05/29/23 14:15) Unknown Medication List - Last Reconciled 12/01/23 by Lloyd Mcmullen MD albuterol sulfate 90 mcg/actuation (ProAir HFA) 2 puffs inhalation Q6H PRN 30 days alprazolam 1 mg PO Q8H PRN cetirizine (Zyrtec) 10 mg PO DAILY citalopram 40 mg PO DAILY cyclobenzaprine 10 mg PO TID PRN dicyclomine 20 mg PO QID metformin ER 1,000 mg PO BID multivitamin 1 tab PO DAILY Tobacco use date assessed: 04/25/23 Dental Screening Dental Screen Date: 04/25/23 HPI 6mof\u HPI Details insomnia due to [facility] related stress [facility] Medical History (Updated 12/01/23 @ 14:42 by Lloyd Mcmullen MD) IBS (irritable bowel syndrome) Asthma Anxiety Surgical History H/O breast augmentation H/O umbilical hernia repair H/O: hysterectomy H/O section History of lumpectomy Family History Father No problems noted. Mother No problems noted. Brother Menieres disease Sister Bipolar 1 disorder Family/Other Substance use disorder Mental health disorder Social History (Reviewed 02/27/23 @ 09:53 by KIM Barajas [facility] Alcohol intake: current Alcohol intake frequency: holidays/special occasions only Patient Tobacco Use Status: Never used Tobacco Tobacco use type: Cigarette e-Cigarette/Vaping Use: Never Used Second Hand Smoke Exposure: No service: No Current occupational status: employed Current occupational exposures/hazards: No Cognitive needs: No Hearing needs: No Vision needs: Yes Questionnaire PHQ-9 Over the last 2 weeks, how often have you been bothered by any of the following problems? 1. Little interest or pleasure in doing things: not at all 2. Feeling down, depressed, or hopeless: not at all 3. Trouble falling or staying asleep, or sleeping too much: not at all 4. Feeling tired or having little energy: not at all 5. Poor appetite or overeating: not at all 6. Feeling bad about yourself - or that you are a failure or have let yourself or your family down: not at all 7. Trouble concentrating on things, such as reading the newspaper or watching television: not at all 8. Moving or speaking so slowly that other people could have noticed. Or the opposite - being so fidgety or restless that you have been moving around a lot more than usual: not at all 9. Thoughts that you would be better off or of hurting yourself in some way: not at all Total score: 0 Depression Screening Interpretation: Negative Depression Screening Done: Yes 54082 - PHQ-9 Billing: Yes Source: Developed by Drs. Jori Wagoner, Fozia Salcedo, Suraj Szymanski and colleagues, with an educational anthony from [facility]. Thrive Questionnaire Date Thrive assessed: 02/27/23 Are you currently unemployed and looking for a job?: No AUDIT C Alcohol Use Questionnaire (AUDIT-C) 1. How often do you have a drink containing alcohol?: 2-3 times a week 2. How many drinks containing alcohol do you have on a typical day when you are drinking?: 1 or 2 3. How often do you have six or more drinks on one occasion?: Never Total Score: 3 Score Reviewed/Action Taken: Yes BRICE-7 AMB Questionnaire BRICE-7 Date RBICE - 7 assessed: 02/27/23 Source: Developed by Drs. Jori Wagoner, Fozia Salcedo, Suraj Szymanski and colleagues, with an educational anthony from [facility]. Review of Systems Const Denies chills, Denies headache(s) and Denies weight loss ENT Denies headache(s) Card Denies chest pain, Denies syncope, Denies irregular heart rhythm and Denies dyspnea Resp Denies chest congestion, Denies cough and Denies dyspnea GI Denies abdominal pain, Denies change in stool character, Denies nausea and Denies vomiting Musc Denies deformity and Denies joint swelling Neuro Denies syncope and Denies headache(s) Physical exam (Primary Care) Vital Signs: Last Vital Signs Pulse 93 12/01/23 13:24 BP 134/78 12/01/23 13:24 Pulse Ox 96 12/01/23 13:24 Oxygen Delivery Method Room Air 12/01/23 13:24 BMI result Body Mass Index 27.0 Tobacco/Smoking Status: Tobacco use Status Tobacco use date assessed 04/25/23 12/01/23 13:30 Patient Tobacco Use Status Never used Tobacco 12/01/23 13:30 Tobacco use type Cigarette 12/01/23 13:30 e-Cigarette/Vaping Use Never Used 12/01/23 13:30 PHQ-9: PHQ-9 Score PHQ-9: Total score 0 12/01/23 13:31 Depression Screening Interpretation: Negative Thrive Assessment: Date of Thrive Assessment Date Thrive assessed 02/27/23 12/01/23 13:30 Const General: cooperative, comfortable, no acute distress and alert Neck Neck: Yes no lymphadenopathy Thyroid: Thyroid normal Resp Effort & Inspection: normal respiratory effort Auscultation: clear to auscultation bilaterally Percussion: percussion normal Cardio Jugular venous distension: no JVD Palpation: normal PMI Rate: regular rate Rhythm: regular rhythm Heart sounds: S1 normal heart sound present and S2 normal heart sound present GI Inspection: Yes normal to inspection Palpation (GI): No hepatosplenomegaly present Skin General skin exam: no rashes or lesions noted Extrem General: Yes no clubbing, cyanosis or edema Coding Level of Care Code Est Pt Level 3 (03808) Diagnoses Insomnia G47.00 Assessment & Plan Assessment & Plan (1) Insomnia: Code(s): G47.00 - Insomnia, unspecified Category: Medical Plan: rx sent Medications: New zolpidem (Ambien) 5 mg PO BEDTIME PRN 30 tabs 2RF sleep Refilled alprazolam 1 mg PO Q8H PRN 90 tabs 4RF anxiety
== END 2023-12-01 13:49 | disposition home or self-care (01) ==
PROVIDERS: PCP Internal Medicine; Visit Provider Internal Medicine
DX: G47.00 Insomnia, unspecified (principal)

== ENCOUNTER → 2023-12-01 13:23 | Outpatient (BNVA) | payer BC, SELFPAY | PROVIDERS: PCP Internal Medicine; Visit Provider Internal Medicine ==

== ENCOUNTER 2024-03-01 09:57 | Outpatient (AMB) | payer BC, SELFPAY ==
--- NOTE | 2024-03-01 10:04 | MHC.PC.OV ---
Vital Signs 03/01/24 10:05 Height 5 ft 6 in Weight 165 lb 2 oz BMI 26.6 BP 130/72 Blood Pressure Location Lt brachial Position Sitting Pulse 74 Pulse Source Pulse Oximeter Pulse Oximetry (%) 98 Oxygen Delivery Method Room Air Intake Visit Reasons: Annual Exam Intake Note: Patient is here today for a physical. Non Linear Editor Required: No Oven Tender Bagels: Not Required per policy Accompanied by: Self / Same As Patient Allergies citalopram [Celexa] Allergy (Intermediate, Verified 03/01/24 10:05) undesired effect banana Allergy (Verified 03/01/24 10:05) Anaphylaxis cat dander [cats] Allergy (Verified 03/01/24 10:05) Unknown dog dander Allergy (Verified 03/01/24 10:05) Unknown grass pollen Allergy (Verified 03/01/24 10:05) Unknown tree and shrub pollen Allergy (Verified 03/01/24 10:05) Unknown dust Allergy (Uncoded 03/01/24 10:05) Unknown Medication List - Last Reconciled 03/01/24 by Lloyd Mcmullen MD albuterol sulfate 90 mcg/actuation (ProAir HFA) 2 puffs inhalation Q6H PRN 30 days alprazolam 1 mg PO Q8H PRN cetirizine (Zyrtec) 10 mg PO DAILY citalopram 40 mg PO DAILY cyclobenzaprine 10 mg PO TID PRN dicyclomine 20 mg PO QID multivitamin 1 tab PO DAILY zolpidem (Ambien) 5 mg PO BEDTIME PRN Tobacco use date assessed: 03/01/24 Dental Screening Dental Screen Date: 03/01/24 Did you have a dental visit in the last 12 months?: Yes Did you have a dental problem in the last 6 months where you did not have access to dental care?: No Was dental information given to patient?: Patient has dentist HPI Annual Exam HPI Details anxiety; colonoscopies and mammograms [facility] Medical History (Updated 12/01/23 @ 14:42 by Lloyd Mcmullen MD) IBS (irritable bowel syndrome) Asthma Anxiety Surgical History (Updated 03/01/24 @ 10:09 by TRISH Diaz) History of midurethral sling procedure H/O breast augmentation H/O umbilical hernia repair H/O: hysterectomy H/O section History of lumpectomy Family History Father No problems noted. Mother No problems noted. Brother Menieres disease Sister Bipolar 1 disorder Family/Other Substance use disorder Mental health disorder Social History Housing: Condominium Alcohol intake: current Alcohol intake frequency: holidays/special occasions only Patient Tobacco Use Status: Never used Tobacco Tobacco use type: Cigarette e-Cigarette/Vaping Use: Never Used Second Hand Smoke Exposure: No service: No Current occupational status: employed Current occupational exposures/hazards: No Cognitive needs: No Hearing needs: No Vision needs: Yes Questionnaire PHQ-9 Over the last 2 weeks, how often have you been bothered by any of the following problems? 1. Little interest or pleasure in doing things: more than half the days 2. Feeling down, depressed, or hopeless: more than half the days 3. Trouble falling or staying asleep, or sleeping too much: more than half the days 4. Feeling tired or having little energy: more than half the days 5. Poor appetite or overeating: several days 6. Feeling bad about yourself - or that you are a failure or have let yourself or your family down: more than half the days 7. Trouble concentrating on things, such as reading the newspaper or watching television: not at all 8. Moving or speaking so slowly that other people could have noticed. Or the opposite - being so fidgety or restless that you have been moving around a lot more than usual: not at all 9. Thoughts that you would be better off or of hurting yourself in some way: not at all Total score: 11 Depression Screening Interpretation: Positive Depression Screening Done: Yes Source: Developed by Drs. Jori Wagoner, Fozia Salcedo, Suraj Szymanski and colleagues, with an educational anthony from [employer]. Thrive Questionnaire Date Thrive assessed: 03/01/24 I am a: Patient What is your living situation today?: I have a steady place to live Within the past 12 months, did the food you bought not last and you didn't have the money to get more?: Never true Within the past 12 months, did you worry whether your food would run out before you got money to buy more?: Never true Do you have trouble paying for medicines?: No Do you have trouble getting transportation to medical appointments?: No Do you have trouble paying your heating and electricity bill?: No Do you have trouble taking care of your child, family member or friend?: No Do you have trouble with day-to-day activities such as bathing, preparing meals, shopping, managing finances, etc.?: No Are you currently unemployed and looking for a job?: No Are you interested in more education?: No Please select the resources that you would like help with: None Currently or been in a relationship where the following occur: No concerns reported THRIVE Score: 0 AUDIT C Alcohol Use Questionnaire (AUDIT-C) 3. How often do you have six or more drinks on one occasion?: Monthly Total Score: 2 BRICE-7 AMB Questionnaire BRICE-7 Date BRICE - 7 assessed: 03/01/24 Feeling nervous, anxious, or on edge: 3 = Nearly every day Not being able to stop or control worryin = Nearly every day Worrying too much about different things: 3 = Nearly every day Trouble relaxin = Several days Being so restless that it is hard to sit still: 0 = Not at all Becoming easily annoyed or irritable: 1 = Several days Feeling afraid as if something awful might happen: 2 = More than half the days Total BRICE-7 score (0-4 normal; 5-9 mild; 10-14 moderate; 15-21 severe): 13 Source: Developed by Drs. Jori Wagoner, Fozia Salcedo, Suraj Szymanski and colleagues, with an educational anthony from [employer]. Review of Systems Const Denies chills, Denies fatigue, Denies headache(s) and Denies weight loss Eyes Denies change in vision, Denies diplopia and Denies eye pain ENT Denies vertigo, Denies dizziness, Denies headache(s) and Denies nasal discharge Card Denies chest pain, Denies rapid heart rate and Denies dyspnea on exertion Resp Denies chest congestion, Denies cough, Denies pain with cough and Denies dyspnea on exertion GI Denies abdominal pain, Denies hematochezia and Denies change in bowel habits Musc Denies myalgias, Denies arthralgias and Denies joint swelling Skin/Breast Denies lesions and Denies unusual bruising Neuro Denies vertigo, Denies dizziness, Denies headache(s) and Denies focal weakness Endo Denies fatigue Physical exam (Primary Care) Vital Signs: Last Vital Signs Pulse 74 03/01/24 10:05 BP 130/72 03/01/24 10:05 Pulse Ox 98 03/01/24 10:05 Oxygen Delivery Method Room Air 03/01/24 10:05 BMI result Body Mass Index 26.6 Tobacco/Smoking Status: Tobacco use Status Tobacco use date assessed 03/01/24 03/01/24 10:11 Patient Tobacco Use Status Never used Tobacco 03/01/24 10:11 Tobacco use type Cigarette 03/01/24 10:11 e-Cigarette/Vaping Use Never Used 03/01/24 10:11 PHQ-9: PHQ-9 Score PHQ-9: Total score 11 03/01/24 10:40 Depression Screening Interpretation: Positive Thrive Assessment: Date of Thrive Assessment Date Thrive assessed 03/01/24 03/01/24 10:11 Currently or been in a relationship where the following occur: No concerns reported Const General: cooperative, healthy appearing and no acute distress Orientation/consciousness: oriented to person, oriented to place and oriented to time HENMI Head: Yes normal to inspection, Yes normocephalic and Yes atraumatic Mouth: Normal oral and palatal mucosa present and tongue normal Throat: Yes posterior oropharynx normal and Yes uvula midline Eyes General: appearance normal, both eyes and all related structures Neck Neck: Yes normal visual inspection, Yes full ROM and Yes no lymphadenopathy Thyroid: Thyroid normal Carotids: normal carotid upstroke Chest Chest palpation & inspection: normal inspection of the chest Resp Effort & Inspection: normal respiratory effort and able to speak in complete sentences Auscultation: clear to auscultation bilaterally Cardio Jugular venous distension: no JVD Palpation: normal PMI Rate: regular rate Rhythm: regular rhythm Heart sounds: S1 normal heart sound present and S2 normal heart sound present GI Inspection: Yes normal to inspection Palpation (GI): Soft to palpation and No hepatosplenomegaly present Auscultation: normal bowel sounds General: Yes no CVA tenderness Back/Spine/Pelvis Back: no CVA tenderness Skin General skin exam: no rashes or lesions noted Neuro General: oriented to person, oriented to place and oriented to time Extrem General: Yes normal to inspection and Yes full ROM Office Procedures Flu Questionnaire Does the patient have a severe egg allergy?: No Does the patient have severe life threatening allergies?: No Does the patient have a fever or illness today?: No Has the patient ever had Guillain-[place] Syndrome?: No Has the patient ever had any past reaction to a flu shot?: No Immunizations Fluarix Triv [id number] (PF) 45 mcg (15 mcg x 3)/0.5 mL IM syringe Performing Provider: Lloyd Mcmullen MD [facility] Administered by: TRISH Basurto on 03/01/24 10:39 Dose Route Admin Location Dispensed Lot Number Expiration Date [facility] Er Manager 0.5 mL IM Left Deltoid 0.5 mL [id number] 08/23/24 [id number] [employer] VIS Given Date VIS Provided VIS Publication Date 03/01/24 Single Vaccine 20 Eligibility Eligibility Date Funding Source Not [facility] Eligible 03/01/24 Private Coding Level of Care Code Est Pt Prev Care 40-64y(61754) Diagnoses Physical exam, annual Z00.00 Anxiety F41.9 Assessment & Plan Assessment & Plan (1) Physical exam, annual: Code(s): Z00.00 - Encounter for general adult medical examination without abnormal findings Category: Medical Plan: stable; do labs (2) Anxiety: Code(s): F41.9 - Anxiety disorder, unspecified Category: Medical Plan: stable; same rx Orders: Orders Influenza [id number] Immunization Today Z23 - Encounter for immunization Lipid Panel Today Z13.220 - Encounter for screening for lipoid disorders Complete Blood Count Auto Diff Today Z13.0 - Encounter for screening for diseases of the blood and blood-forming organs and certain disorders involving the immune mechanism Comprehensive [place]. Panel Fast Today Z13.9 - Encounter for screening, unspecified Thyroid Stimulating Hormone Today Z13.29 - Encounter for screening for other suspected endocrine disorder
[2024-03-01 10:05] VITALS: BP 130/72; PULSE 74; O2SAT 98; BMI 26.6
== END 2024-03-01 10:33 | disposition home or self-care (01) ==
PROVIDERS: PCP Internal Medicine; Visit Provider Internal Medicine
DX: Z00.00 Encounter for general adult medical examination without abnormal findings (principal); F41.9 Anxiety disorder, unspecified; Z23 Encounter for immunization

== ENCOUNTER → 2024-03-01 09:57 | Outpatient (BNVA) | payer BC, SELFPAY | PROVIDERS: PCP Internal Medicine; Visit Provider Internal Medicine | DX: Z00.00 Encounter for general adult medical examination without abnormal findings (principal); Z23 Encounter for immunization; F41.9 Anxiety disorder, unspecified | CPT/HCPCS: 90471; 90656; 96127 ==

== ENCOUNTER 2024-09-03 09:33 | Outpatient (REF) | payer BC, SELFPAY ==
--- OUTSIDE RECORDS SUMMARY | 2024-09-03 09:48 | XMS_ITS | Patient Health Record ---
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 Role Phone Lloyd Mcmullen MD Primary Care Provider Jori Gillespie Unavailable [phone] Allergies Allergen (clinical drug ingredient) Drug/Non Drug Allergy documented on EMR Reaction Allergy Type Onset Date Status bananas,trees,dogs, cats, grass,dust (uncoded) Unknown Allergy Active Reason For Referral No Information Medications Medication SIG (Take, Route, Frequency, Duration) Notes Start Date End Date Status Christen Active Flonase Allergy Relief Active Albuterol Sulfate HFA 108 (90 Base) MCG/ACT INHALE 2 PUFFS EVERY 6 HOURS NEEDED FOR BRONCOSPASM Inhalation for 20 Active ALPRAZolam 1 MG TAKE 1 TABLET BY LEONELA TH EVERY 8 HOURS NEEDED FOR ANXIETY Oral for 30 Active Venlafaxine HCl ER 37.5 MG TAKE 1 CAPSUL E BY MOUTH EVERY DAY Oral for 90 Active Multivitamin Active ZyrTEC Active Immunizations Vaccine Route Administration Date Status Comme nts Influenza Unknown 02/24/2022 Administered Social History Tobacco Use: Social History Observation Description Date Details (start date - stop date) Never Smoker NA - NA Tobacco Use/Smoking Question Answer Notes Patient is a nonsmoker Alcohol Screen Question Answer Notes Did you have a drink contain ing alcohol in the past year? Yes How often did you have a dri nk containing alcohol in the past year? Never (0 point) How many drinks did you have on a typical day when you were drinking in the past year? 1 or 2 drinks (0 point) Points 0 Interpretation Negative Section Notes: Nonsmoker; occ alcohol Problems Problem Type SNOMED Code ICD Code Onset Dates Problem Status W/U Status Risk Notes Problem [id number] Colon cancer screening (Z12.11) Active confirmed Problem Diverticulosis o f large intestine without perforation or abscess without bleeding (K57.30) Active confirmed Problem [id number] Pre-procedural examination (Z01.818) Active confirmed Plan Of Treatment Future Test Test Name Order Date COLONOSCOPY 03/19/2022 Insurance Providers Payer Name Payer Address Payer Phone Subscriber Number Group Number Insured Name Patient Relationship to Insured Coverage Start Date Coverage End Date [facility] [employer] [address] [place] [address] [id number] TUCKER Self - patient is the insured Medical (General) History Medical History History ICD Code Denies RI,DM,CVA,renal disease Asthma Seasonal allergies IBS with constipation Depression/Anxiety Surgical History Surgery Date(Month/Year) 1998,2006 Hysterectomy 2013 Hernia repair umbilical 2008 Benign lumpectomy Breast augmentation
--- OUTSIDE RECORDS SUMMARY | 2024-09-03 09:49 | XMS_ITS ---
Author Name [facility] Organization Unknown Encounters Encounter Type Encounter Reason Primary Diagnosis Location Date Ambulatory [facility] ([facility] 02/05/2022
[2024-09-03 11:33] LABS: MANUAL DIFF FLAG NO
[2024-09-03 11:54] LABS: Hematocrit 39.2 % (37.0-47.0); Hemoglobin 12.8 g/dl (12.0-16.0); Imm Gran Abs Auto 0.01 X10*3/uL (0.00-0.03); Imm Gran Pct Auto 0.2 % (0.0-0.4); Lymphocytes Absolute Auto 1.3 X10*3/uL (1.2-4.9); Mean Corpuscular HGB Conc 32.7 g/dl (31.0-35.0); Mean Corpuscular Hemoglobin 29.6 pg (27.0-33.0); Mean Corpuscular Volume 90.7 fL (80.0-98.0); NRBC Abs Auto 0.000 X10*3/uL (0.0-0.012); NRBC Pct Auto 0.0 /100WBC (0.0-0.2); Platelet Count 264 X10*3/uL (160-400); Red Blood Count 4.32 X10*6/uL (4.20-5.50); White Blood Count 4.4 X10*3/uL (4.8-10.8)
[2024-09-03 12:06] LABS: Alanine Aminotransferase 14 U/L (0-31); Albumin Level 4.6 g/dL (3.5-5.0); Alkaline Phosphatase 37 U/L (39-117); Anion Gap 10 (12-20); Aspartate Amino Transferase 17 U/L (5-31); Blood Urea Nitrogen 10 mg/dL (9-16); Calcium 9.4 mg/dL (8.4-10.2); Carbon Dioxide 30 mmol/L (22-29); Chloride 104 mmol/L (96-108); Cholesterol 185 mg/dL (<200); Estimated Glomerular Filt Rate > 60; HDL Cholesterol 64 mg/dL (>40); Potassium 3.7 mmol/L (3.3-5.1); Sodium 140 mmol/L (135-145); Total Protein 6.9 g/dL (6.5-8.0); Triglycerides 51 mg/dL (<150)
[2024-09-03 12:23] LABS: Thyroid Stimulating Hormone 1.77 uIU/mL (0.32-4.0)
== END 2024-09-03 09:34 | disposition home or self-care (01) ==
LOC: HO.WFDLDS 09:33
PROVIDERS: Visit Provider Internal Medicine
DX: Z13.0 Encounter for screening for diseases of the blood and blood-forming organs and certain disorders involving the immune mechanism (principal); Z13.29 Encounter for screening for other suspected endocrine disorder; Z13.220 Encounter for screening for lipoid disorders; Z13.9 Encounter for screening, unspecified
CPT/HCPCS: 36415; 80053; 80061; 84443; 85025

== ENCOUNTER 2024-10-21 14:44 | Outpatient (AMB) | payer BC, SELFPAY ==
--- NOTE | 2024-10-21 14:56 | A.OFFPC_ITS ---
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 Required: No Accompanied by: Self / Same As Patient Allergies citalopram (Celexa) Allergy (Intermediate, Verified 10/21/24 15:30) undesired effect banana Allergy (Verified 10/21/24 15:30) Anaphylaxis cat dander (cats) Allergy (Verified 10/21/24 15:30) Unknown dog dander Allergy (Verified 10/21/24 15:30) Unknown grass pollen Allergy (Verified 10/21/24 15:30) Unknown tree and shrub pollen Allergy (Verified 10/21/24 15:30) Unknown dust Allergy (Uncoded 10/21/24 15:30) Unknown Medication List - Last Reconciled 10/21/24 by Leti Payan PA-C albuterol sulfate 90 mcg/actuation (ProAir HFA) 2 puffs inhalation Q6H PRN 30 days alprazolam 1 mg PO Q8H PRN citalopram 40 mg PO DAILY multivitamin 1 tab PO DAILY zolpidem (Ambien) 5 mg PO BEDTIME PRN Tobacco use date assessed: 10/21/24 Dental Screening Dental Screen Date: 10/21/24 Did you have a dental visit in the last 12 months?: Yes Did you have a dental problem in the last 6 months where you did not have access to dental care?: Yes Was dental information given to patient?: Patient has dentist HPI VIC DR Mcmullen HPI Details 53-year-old female with a past medical h istory of anxiety, asthma, panic disorder, depression, headaches and insomnia last seen by Dr. Mcmullen coming in for transfer of care. Presenting with a transfer of care. The patient has a history of anxiety and panic disorder, with recent exacerbations due to work-related stressors, including legal issues and FOIA requests. She experiences panic attacks, with symptoms such as body shakes and the need for a weighted blanket to alleviate symptoms. The patient reports that her depression is not well managed with current medications, and she experiences symptoms such as lack of motivation. She has tried counseling, which was not beneficial, and is considering a change in medication regimen. The patient has a history of malignant melanoma and is in the process of switching dermatologists due to her current provider relocating. The patient reports a history of herniated cervical discs, with current symptoms of shoulder pain and spasms when reaching back with her right arm. The patient experiences shoulder pain, particularly when reaching back, which may be related to rotator cuff issues or AC joint problems. She is currently on Zepbound 7.5 mg in is working on tapering down as she is at her target weight. [facility] Medical History Malignant melanoma IBS (irritable bowel syndrome) Asthma Anxiety Surgical History History of bladder surgery History of midurethral sling procedure H/O breast augmentation H/O umbilical hernia repair H/O: hysterectomy H/O section History of lumpectomy Family History Father No problems noted. Mother No problems noted. Brother Menieres disease Sister Bipolar 1 disorder Family/Other Substance use disorder Mental health disorder Social History Housing: Condominium Alcohol intake: current Alcohol intake frequency: holidays/special occasions only Patient Tobacco Use Status: Never used Tobacco Tobacco use type: Cigarette e-Cigarette/Vaping Use: Never Used Second Hand Smoke Exposure: No service: No Current occupational status: employed Current occupational exposures/hazards: No Cognitive needs: No Hearing needs: No Vision needs: Yes Questionnaire PHQ-9 Over the last 2 weeks, how often have you been bothered by any of the following problems? 1. Little interest or pleasure in doing things: more than half the days 2. Feeling down, depressed, or hopeless: more than half the days 3. Trouble falling or staying asleep, or sleeping too much: more than half the days 4. Feeling tired or having little energy: more than half the days 5. Poor appetite or overeating: several days 6. Feeling bad about yourself - or that you are a failure or have let yourself or your family down: more than half the days 7. Trouble concentrating on things, such as reading the newspaper or watching television: not at all 8. Moving or speaking so slowly that other people could have noticed. Or the opposite - being so fidgety or restless that you have been moving around a lot more than usual: not at all 9. Thoughts that you would be better off or of hurting yourself in some way: not at all Total score: 11 Depression Screening Interpretation: Positive Depression Screening Follow-up: Existing condition, In treatment and New Medication prescribed Depression Screening Done: Yes 71933 - PHQ-9 Billing: Yes Source: Developed by Drs. Jori Wagoner, Fozia Salcedo, Suraj Szymanski and colleagues, with an educational anthony from [employer]. Thrive Questionnaire Date Thrive assessed: 10/21/24 I am a: Patient What is your living situation today?: I have a steady place to live Within the past 12 months, did the food you bought not last and you didn't have the money to get more?: Never true Within the past 12 months, did you worry whether your food would run out before you got money to buy more?: Never true Do you have trouble paying for medicines?: No Do you have trouble getting transportation to medical appointments?: No Do you have trouble paying your heating and electricity bill?: No Do you have trouble taking care of your child, family member or friend?: No Do you have trouble with day-to-day activities such as bathing, preparing meals, shopping, managing finances, etc.?: No Are you currently unemployed and looking for a job?: No Are you interested in more education?: No Please select the resources that you would like help with: None Currently or been in a relationship where the following occur: No concerns reported THRIVE Score: 0 AUDIT C Alcohol Use Questionnaire (AUDIT-C) 3. How often do you have six or more drinks on one occasion?: Monthly Total Score: 2 BRICE-7 AMB Questionnaire BRICE-7 Date BRICE - 7 assessed: 03/01/24 Feeling nervous, anxious, or on edge: 3 = Nearly every day Not being able to stop or control worryin = Nearly every day Worrying too much about different things: 3 = Nearly every day Trouble relaxin = Several days Being so restless that it is hard to sit still: 0 = Not at all Becoming easily annoyed or irritable: 1 = Several days Feeling afraid as if something awful might happen: 2 = More than half the days Total BRICE-7 score (0-4 normal; 5-9 mild; 10-14 moderate; 15-21 severe): 13 Source: Developed by Drs. Jori Wagoner, Fozia Salcedo, Suraj Szymanski and colleagues, with an educational anthony from [employer]. BRICE-7 Assessment Billing BRICE-7 Assessment Tool: BRICE-7 Assessment 68891 Review of Systems Const Denies body aches, Denies fatigue, Denies fever(s), Denies frequent falls, Denies headache(s) and Denies weakness Eyes Reports no additional complaints and Denies change in vision ENT Denies dysphagia, Denies dizziness, Denies facial pain, Denies headache(s), Denies nasal congestion and Denies odynophagia Card Denies chest pain, Denies syncope, Denies irregular heart rhythm, Denies leg edema, Denies lightheadedness and Denies dyspnea Resp Denies cough and Denies dyspnea GI Denies constipation, Denies dysphagia, Denies dyspepsia, Denies diarrhea, Denies nausea, Denies odynophagia and Denies vomiting Musc Reports as per HPI, Denies back pain and Denies myalgias Skin/Breast Reports system reviewed and no additional complaints, except as documented Neuro Denies dizziness, Denies syncope, Denies frequent falls, Denies headache(s) and Denies weakness Psych Reports no additional complaints Endo Denies fatigue Physical exam (Primary Care) Vital Signs: Last Vital Signs Temp 97.4 F 10/21/24 14:57 Pulse 77 10/21/24 14:57 BP 130/82 10/21/24 14:57 Pulse Ox 99 10/21/24 14:57 Oxygen Delivery Method Room Air 10/21/24 14:57 BMI result Body Mass Index 26.7 Tobacco/Smoking Status: Tobacco use Status Tobacco use date assessed 10/21/24 10/21/24 15:05 Patient Tobacco Use Status Never used Tobacco 10/21/24 15:05 Tobacco use type Cigarette 10/21/24 15:05 e-Cigarette/Vaping Use Never Used 10/21/24 15:05 PHQ-9: PHQ-9 Score PHQ-9: Total score 11 10/21/24 15:39 Depression Screening Interpretation: Positive Depression Screening Follow-up: Existing condition, In treatment and New Medication prescribed Thrive Assessment: Date of Thrive Assessment Date Thrive assessed 10/21/24 10/21/24 15:05 Currently or been in a relationship where the following occur: No concerns reported Const General: cooperative, healthy appearing, comfortable and no acute distress Orientation/consciousness: patient oriented x3 HENMT Head: Yes normocephalic Ears: hearing grossly normal bilaterally and Abnormal EAC present excessive cerumen bilateral General nose exam: Normal external nose present Eyes General: appearance normal, both eyes and all related structures Conjunctivae: conjunctivae normal Neck Neck: Yes full ROM and Yes no lymphadenopathy Resp Effort & Inspection: normal respiratory effort Auscultation: clear to auscultation bilaterally, no crackles, no rales, no rhonchi and no wheezes Cardio Rate: regular rate Rhythm: regular rhythm Skin General skin exam: no rashes or lesions noted Neuro General: patient oriented x3 Gait exam (Neuro): Normal gait present Extrem Other: Intact strength and sensation in bilateral upper extremities. Pain to palpation over lateral aspect of the right shoulder and in the AC joint area. Pain elicited with internal rotation of the right shoulder General: Yes normal to inspection, Yes full ROM and No edema Psych Affect: normal affect Attitude: cooperative Insight: Good insight present (Psych) Judgement: Good judgement present (Psych) Coding Level of Care Code Est Pt Level 4 (83506) Diagnoses Depression F32.9 Anxiety F41.9 Panic disorder F41.0 Asthma J45.909 Insomnia G47.00 Right shoulder pain M25.511 Cerumen impaction H61.20 Additional Codes BRICE-7 Assessment Billing - BRICE-7 Assessment Tool: BRICE-7 Assessment 16391 ([id number]) PHQ-9 - 60094 - PHQ-9 Billing: Yes ([id number]) Assessment & Plan Assessment & Plan (1) Depression: Code(s): F32.9 - Major depressive disorder, single episode, unspecified Category: Medical Plan: Patient feels her depression and anxiety are not well managed at this time plan to start on Wellbutrin 150 mg daily and taper up to 150 b.i.d. as tolerated. She will continue on citalopram 40 mg as well as alprazolam as needed. Declining counselor at this time (2) Anxiety: Code(s): F41.9 - Anxiety disorder, unspecified Category: Medical Plan: See above (3) Panic disorder: Code(s): F41.0 - Panic disorder [episodic paroxysmal anxiety] Category: Medical Plan: Continue on alprazolam as needed (4) Asthma: Code(s): J45.909 - Unspecified asthma, uncomplicated Category: Medical Plan: Asthma currently controlled on present medications. Continue on albuterol as needed. Avoid triggers such as allergies. (5) Insomnia: Code(s): G47.00 - Insomnia, unspecified Category: Medical Plan: Currently using alprazolam to sleep as well as Ambien as needed. (6) Right shoulder pain: Code(s): M25.511 - Pain in right shoulder Category: Medical Plan: Complaining of right shoulder pain primarily with internal rotation plan to obtain x-ray for further evaluation. I did offer physical therapy which was declined at this time. Patient may use heating pads, Tylenol and ibuprofen as needed (7) Cerumen impaction: Code(s): H61.20 - Impacted cerumen, unspecified ear Category: Medical Plan: Follow up in 3 months for ear cleaning Plan During the visit, we discussed the patient's current medication regimen and the potential addition of Wellbutrin to address anxiety and depression symptoms. We reviewed the management of asthma, which is currently well controlled. The patient expressed concerns about shoulder pain, and we planned for an x-ray to evaluate the issue further. We also discussed the patient's history of malignant melanoma and the need for continued dermatology follow-ups. The patient was advised to continue using hydrocortisone spray for itchy skin bumps and to follow up with dermatology as needed. We scheduled a follow-up appointment in three months to assess the effectiveness of the medication adjustments and overall management of her conditions. This note was constructed using voice recognition software. While every effort has been made to ensure accuracy and vice president of software engineering, still areas may have been included sometimes these areas may affect the content or meeting of the given symptoms. Total time spent caring for the patient today was 30 minutes. This includes time spent before the visit reviewing the chart, time spent during the visit, and time spent after the visit and documentation. Patient was informed and verbally consented to the use of an ambient scribe for clinic note documentation during this visit. Orders: Orders XR shoulder RT min 2V 10/21/24 M25.511 - Pain in right shoulder Medications: New bupropion HCl SR (Wellbutrin SR) 150 mg PO DAILY 90 tabs 0RF tirzepatide (weight loss) 5 mg (0.5 mL) subcut QWEEK 2 mL 0RF Refilled alprazolam 1 mg PO Q8H PRN 90 tabs 0RF anxiety citalopram 40 mg PO DAILY 90 tabs 1RF
[2024-10-21 14:57] VITALS: BP 130/82; PULSE 77; TEMP 36.3; O2SAT 99; BMI 26.7
--- OUTSIDE RECORDS SUMMARY | 2024-10-21 15:18 | XMS_ITS | Patient Health Record ---
Author Organization [facility] Address [address] [place] [id number] Care Team Providers Care Drawer In Name Role Phone Lloyd Mcmullen MD Primary Care Provider Jori Gillespie Unavailable [phone] Allergies Allergen (clinical drug ingredient) Drug/Non Drug [...] Problem Status W/U Status Risk Notes Problem [id number] Colon cancer screening (Z12.11) Active confirmed Problem Diverticulosis o f large intestine without perforation or abscess without bleeding (K57.30) Active confirmed Problem [id number] Pre-procedural examination (Z01.818) Active confirmed Plan Of Treatment Future Test Test Name Order Date COLONOSCOPY 03/19/2022 Insurance Providers Payer Name Payer Address Payer Phone Subscriber Number Group Number Insured Name Patient Relationship to Insured Coverage Start Date Coverage End Date [facility] [address] [place] [address] [id number] [employer]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
== END 2024-10-21 16:08 | disposition home or self-care (01) ==
LOC: HO.HMCH 14:44
DX: J45.909 Unspecified asthma, uncomplicated (principal); F32.9 Major depressive disorder, single episode, unspecified; H61.23 Impacted cerumen, bilateral; F41.9 Anxiety disorder, unspecified; F41.0 Panic disorder [episodic paroxysmal anxiety]; G47.00 Insomnia, unspecified; M25.511 Pain in right shoulder

== ENCOUNTER → 2024-10-21 14:44 | Outpatient (BNVA) | payer BC, SELFPAY | DX: F41.0 Panic disorder [episodic paroxysmal anxiety] (principal); F41.9 Anxiety disorder, unspecified; J45.909 Unspecified asthma, uncomplicated; R51.9 Headache, unspecified; G47.00 Insomnia, unspecified; F32.9 Major depressive disorder, single episode, unspecified; M25.511 Pain in right shoulder; H61.20 Impacted cerumen, unspecified ear | CPT/HCPCS: 96127 ==

== ENCOUNTER 2025-01-03 10:27 | Outpatient (AMB) | payer BC, SELFPAY ==
[2025-01-03 10:34] VITALS: BP 132/88; PULSE 90; TEMP 36.3; O2SAT 98; BMI 22.6
--- NOTE | 2025-01-03 10:34 | MHC.PC.OV ---
Vital Signs 01/03/25 10:34 Height 5 ft 6 in Weight 140 lb 4 oz BMI 22.6 BP 132/88 Blood Pressure Location Lt brachial Position Sitting Pulse 90 Pulse Source Pulse Oximeter Temp 97.3 F Temp Source Temporal Artery Scan Pulse Oximetry (%) 98 Oxygen Delivery Method Room Air Intake Visit Reasons: f/u depression and ear cleaning Plastic Mixer Required: No Accompanied by: Self / Same As Patient Allergies citalopram (Celexa) Allergy (Intermediate, Verified 01/03/25 10:41) undesired effect banana Allergy (Verified 01/03/25 10:41) Anaphylaxis cat dander (cats) Allergy (Verified 01/03/25 10:41) Unknown dog dander Allergy (Verified 01/03/25 10:41) Unknown grass pollen Allergy (Verified 01/03/25 10:41) Unknown tree and shrub pollen Allergy (Verified 01/03/25 10:41) Unknown dust Allergy (Uncoded 01/03/25 10:41) Unknown Medication List - Last Reconciled 01/03/25 by Leti Payan PA-C albuterol sulfate 90 mcg/actuation (ProAir HFA) 2 puffs inhalation Q6H PRN 30 days alprazolam 1 mg PO Q8H PRN bupropion HCl SR (Wellbutrin SR) 150 mg PO DAILY citalopram 40 mg PO DAILY multivitamin 1 tab PO DAILY tirzepatide (weight loss) 5 mg (0.5 mL) subcut QWEEK zolpidem (Ambien) 5 mg PO BEDTIME PRN Tobacco use date assessed: 10/21/24 Dental Screening Dental Screen Date: 10/21/24 Did you have a dental visit in the last 12 months?: Yes Did you have a dental problem in the last 6 months where you did not have access to dental care?: Yes Was dental information given to patient?: Patient has dentist HPI f/u depression and ear cleaning HPI Details 54-year-old female with a past medical history of anxiety, asthma, panic disorder, depression, headaches and insomnia last seen 09/2024 coming in for follow up. Presenting for a follow-up on anxiety and depression. She is currently taking Wellbutrin 150 mg once daily without side effects. She also takes alprazolam, for which she needs a refill, and sertraline. She notes recent major life changes which has helped reduce her stress. Despite some improvements in motivation, she still experiences social anxiety and finds it hard to leave her house and would like to increase her Wellbutrin. Her previous issue with shoulder pain has resolved, and she believes it was related to stress and TMJ dysfunction. 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 The patient has a chronic history of sinus issues for over 10 years, characterized by sinus pressure and headaches, which are exacerbated by changes in air pressure. She finds relief with nasal sprays and ibuprofen. [facility] Medical History Malignant melanoma IBS (irritable bowel syndrome) Asthma Anxiety Surgical History History of bladder surgery History of midurethral sling procedure H/O breast augmentation H/O umbilical hernia repair H/O: hysterectomy H/O section History of lumpectomy Family History Father No problems noted. Mother No problems noted. Brother Menieres disease Sister Bipolar 1 disorder Family/Other Substance use disorder Mental health disorder Social History Housing: Condominium Alcohol intake: current Alcohol intake frequency: holidays/special occasions only Patient Tobacco Use Status: Never used Tobacco Tobacco use type: Cigarette e-Cigarette/Vaping Use: Never Used Second Hand Smoke Exposure: No service: No Current occupational status: employed Current occupational exposures/hazards: No Cognitive needs: No Hearing needs: No Vision needs: Yes Questionnaire PHQ-9 Over the last 2 weeks, how often have you been bothered by any of the following problems? 1. Little interest or pleasure in doing things: more than half the days 2. Feeling down, depressed, or hopeless: more than half the days 3. Trouble falling or staying asleep, or sleeping too much: more than half the days 4. Feeling tired or having little energy: more than half the days 5. Poor appetite or overeating: several days 6. Feeling bad about yourself - or that you are a failure or have let yourself or your family down: more than half the days 7. Trouble concentrating on things, such as reading the newspaper or watching television: not at all 8. Moving or speaking so slowly that other people could have noticed. Or the opposite - being so fidgety or restless that you have been moving around a lot more than usual: not at all 9. Thoughts that you would be better off or of hurting yourself in some way: not at all Total score: 11 Depression Screening Interpretation: Positive Depression Screening Follow-up: Existing condition, In treatment and New Medication prescribed Depression Screening Done: Yes Source: Developed by Drs. Jori Wagoner, Fozia Salcedo, Suraj Szymanski and colleagues, with an educational anthony from [employer]. Thrive Questionnaire Date Thrive assessed: 03/01/24 I am a: Patient What is your living situation today?: I have a steady place to live Within the past 12 months, did the food you bought not last and you didn't have the money to get more?: Never true Within the past 12 months, did you worry whether your food would run out before you got money to buy more?: Never true Do you have trouble paying for medicines?: No Do you have trouble getting transportation to medical appointments?: No Do you have trouble paying your heating and electricity bill?: No Do you have trouble taking care of your child, family member or friend?: No Do you have trouble with day-to-day activities such as bathing, preparing meals, shopping, managing finances, etc.?: No Are you currently unemployed and looking for a job?: No Are you interested in more education?: No Please select the resources that you would like help with: None Currently or been in a relationship where the following occur: No concerns reported THRIVE Score: 0 AUDIT C Alcohol Use Questionnaire (AUDIT-C) 3. How often do you have six or more drinks on one occasion?: Monthly Total Score: 2 BRICE-7 AMB Questionnaire BRICE-7 Date BRICE - 7 assessed: 03/01/24 Feeling nervous, anxious, or on edge: 3 = Nearly every day Not being able to stop or control worryin = Nearly every day Worrying too much about different things: 3 = Nearly every day Trouble relaxin = Several days Being so restless that it is hard to sit still: 0 = Not at all Becoming easily annoyed or irritable: 1 = Several days Feeling afraid as if something awful might happen: 2 = More than half the days Total BRICE-7 score (0-4 normal; 5-9 mild; 10-14 moderate; 15-21 severe): 13 Source: Developed by Drs. Jori Wagoner, Fozia Salcedo, Suraj Szymanski and colleagues, with an educational anthony from [employer]. Review of Systems Const Denies body aches, Denies chills, Denies fever(s), Denies headache(s) and Denies poor appetite Eyes Reports no additional complaints ENT Denies dizziness and Denies headache(s) Card Denies chest pain, Denies edema, Denies lightheadedness and Denies dyspnea Resp Denies dyspnea GI Denies abdominal pain, Denies nausea and Denies vomiting Reports no additional complaints Musc Reports no additional complaints and Denies abnormal gait Skin/Breast Reports system reviewed and no additional complaints, except as documented Neuro Denies abnormal gait, Denies dizziness and Denies headache(s) Psych Reports no additional complaints Physical exam (Primary Care) Vital Signs: Last Vital Signs Temp 97.3 F 01/03/25 10:34 Pulse 90 01/03/25 10:34 BP 132/88 01/03/25 10:34 Pulse Ox 98 01/03/25 10:34 Oxygen Delivery Method Room Air 01/03/25 10:34 BMI result Body Mass Index 22.6 Tobacco/Smoking Status: Tobacco use Status Tobacco use date assessed 10/21/24 01/03/25 10:40 Patient Tobacco Use Status Never used Tobacco 01/03/25 10:40 Tobacco use type Cigarette 01/03/25 10:40 e-Cigarette/Vaping Use Never Used 01/03/25 10:40 PHQ-9: PHQ-9 Score PHQ-9: Total score 01/03/25 10:40 Depression Screening Interpretation: Positive Depression Screening Follow-up: Existing condition, In treatment and New Medication prescribed Thrive Assessment: Date of Thrive Assessment Date Thrive assessed 03/01/24 01/03/25 10:40 Currently or been in a relationship where the following occur: No concerns reported Const General: cooperative, healthy appearing, comfortable and no acute distress Orientation/consciousness: patient oriented x3 HENMT Head: Yes normocephalic Ears: hearing grossly normal bilaterally and Abnormal EAC present excessive cerumen bilateral General nose exam: Normal external nose present Eyes General: appearance normal, both eyes and all related structures Conjunctivae: conjunctivae normal Neck Neck: Yes full ROM and Yes no lymphadenopathy Resp Effort & Inspection: normal respiratory effort Auscultation: clear to auscultation bilaterally, no crackles, no rales, no rhonchi and no wheezes Cardio Rate: regular rate Rhythm: regular rhythm Skin General skin exam: no rashes or lesions noted Neuro General: patient oriented x3 Gait exam (Neuro): Normal gait present Extrem General: Yes normal to inspection, Yes full ROM and No edema Psych Affect: normal affect Attitude: cooperative Insight: Good insight present (Psych) Judgement: Good judgement present (Psych) Office Procedures Cerumen Removal From which ear canal was the cerumen removed: bilateral Removal: cerumen loop/spoon Notes: patient tolerated procedure well, no complications and ear canal clear [id number] Wax Removal by Spoon/Curette Coding Level of Care Code Est Pt Level 3 (18232) Diagnoses Depression F32.9 Anxiety F41.9 Panic disorder F41.0 Insomnia G47.00 Right shoulder pain M25.511 Cerumen impaction H61.20 Sinus problem J34.9 CPT Codes Office Procedure - CPT: 73589-Heg Wax Removal by Spoon/Curette ([id number]) Assessment & Plan Assessment & Plan (1) Depression: Code(s): F32.9 - Major depressive disorder, single episode, unspecified Category: Medical Plan: Patient was started on Wellbutrin at her last visit to better manage her anxiety and depression. The patient feels her current dose of Wellbutrin is insufficient for managing her symptoms. The plan is to increase Wellbutrin from 150 mg daily to 150 mg twice daily. A refill for alprazolam will be sent, and she has an existing refill for sertraline. A follow-up is scheduled in three months. (2) Anxiety: Code(s): F41.9 - Anxiety disorder, unspecified Category: Medical Plan: See above (3) Panic disorder: Code(s): F41.0 - Panic disorder [episodic paroxysmal anxiety] Category: Medical Plan: Continue on alprazolam as needed (4) Insomnia: Code(s): G47.00 - Insomnia, unspecified Category: Medical Plan: Currently using alprazolam to sleep as well as Ambien as needed. Plan to trial magnesium as needed and consider home sleep study test. (5) Right shoulder pain: Code(s): M25.511 - Pain in right shoulder Category: Medical Plan: Shoulder pain has improved she will continue to monitor at this time. Likely related to her stress (6) Cerumen impaction: Code(s): H61.20 - Impacted cerumen, unspecified ear Category: Medical Plan: Follow up in 3 months for ear cleaning. Bilateral ears were cleaned using lighted curette. Patient tolerated the procedure well and tMs were visualized as intact with well aerated middle ear spaces without perforation or retraction. Scant wax was left in the left EAC advised patient to use Debrox drops for the remainder of the wax. (7) Sinus problem: Code(s): J34.9 - Unspecified disorder of nose and nasal sinuses Category: Medical Plan: The patient experiences chronic sinus pressure, especially with barometric changes. The use of [id number]-usriywn Sudafed was discussed for acute symptoms, with a caution against use for more than three days to avoid rebound congestion and potential for increased heart rate. The option of sinus imaging was offered, but the patient prefers to wait until an ENT specialist is available at the clinic. Plan This note was constructed using voice recognition software. While every effort has been made to ensure accuracy and well driller helper, still areas may have been included sometimes these areas may affect the content or meeting of the given symptoms. Total time spent caring for the patient today was 30 minutes. This includes time spent before the visit reviewing the chart, time spent during the visit, and time spent after the visit and documentation. Patient was informed and verbally consented to the use of an ambient scribe for clinic note documentation during this visit. Orders: Referrals Ear/Nose/Throat Referral J34.9 - Unspecified disorder of nose and nasal sinuses Medications: Changed From bupropion HCl SR (Wellbutrin SR) 150 mg PO DAILY 90 tabs 0RF To bupropion HCl SR (Wellbutrin SR) 150 mg PO BID 180 tabs 0RF Refilled alprazolam 1 mg PO Q8H PRN 90 tabs 0RF anxiety alprazolam 1 mg PO Q8H PRN 90 tabs 0RF anxiety
--- OUTSIDE RECORDS SUMMARY | 2025-01-03 12:17 | XMS_ITS | Data Portability ---
Author Organization [place] - [facility], [address] Address [address] [place] [address] Assessment No assessment recorded. Plan of Treatment Reminders Order Date Submit Date Provider Last Modified By Organization Details Last Modified Time Details Appointments None record ed. Lab None record ed. Referral None record ed. Procedures None record ed. Surgeries None record ed. Imaging None record ed. Medication Orders None record ed. Patient TargetsNo targets recorded. Patient InstructionsNo instructions recorded. Reason for Referral None Reported. Medical Equipment None Reported. Vitals Date Recorded Body temperature Provider Name a nd Address Organization Details Last Updated DateTime 02/05/2022 98.6 [degF] LATESHA PICKERING [place] - [facility] 02/05/2022 08:41:33 Social History None recorded. Functional Status None recorded. Mental Status None recorded. Family History Nothing Reported. Medical History No medical history recorded. Gynecological HistoryNo gynecological history recorded. Obstetrics History GPAL:G 0 P 0 0 0 0 Immunizations Vaccine Type Date Status Note Provider Nam e and Address Organization Details Recorded Time Influenza, MDCK, quadrivalent, PF 02/05/2022 completed Yessi Landaverde MD [address] [place], [place] [address] [place] [address], [place] - [facility] 02/05/2022 08:48:46 Past Encounters Encounter ID Performer Location Encounter Start Date Encounter Closed Date Diagnosis/Indication Diagnosis SNOMED-CT Code Diagnosis ICD10 Code Diagnosis IMO Codes Diagnosis Note [id number] [address] [place] [address] 06/25/2018 18:20:42 06/25/2018 18:46:[id number] [place] [address] 03/01/2016 15:07:45 03/01/2016 15:38:[id number] [place] [address] 06/26/2017 15:49:59 06/26/2017 16:31:28 [id number] [address] [place] [address] 11/05/2018 08:14:28 11/05/2018 08:47:14 [id number] [address] [place] [address] 03/11/2018 08:36:21 03/11/2018 10:38:47 [id number] [place] [address] 10/20/2015 15:25:34 10/20/2015 16:18:12 [id number] [address] [place] [address] 11/01/2018 08:51:03 11/01/2018 09:10:19 [id number] [address] [place] [address] 09/19/2018 09:10:33 09/19/2018 09:53:25 [id number] [address] [place] [address] 03/07/2020 12:25:43 03/07/2020 15:55:54 [id number] [address] [place] [address] 07/01/2020 16:41:59 07/01/2020 17:45:06 [id number] Yessi Landaverde [place] [address] [place] [address] 02/05/2022 08:11:11 02/05/2022 08:53:35 Administration of influenza vaccine [id number] Health Concerns Section Related Observation LastModified by Organization Detai ls LastModified Time None Recorded Concern Status LastModified by Organization Details LastModified Time None Recorded Advance Directives Directive None Recorded Payers Insurance Date Sequence Insurance Name Policy Number Policy Burden Covered Member ID Burden Member ID Guarantor Name 02/05/2022 1 [facility] [id number] Dina Lawrence [id number] Dina Lawrence OBGyn Episode No OBEpisode recorded.
== END 2025-01-03 11:12 | disposition home or self-care (01) ==
LOC: HO.HMCH 10:28
DX: F32.9 Major depressive disorder, single episode, unspecified (principal); F41.9 Anxiety disorder, unspecified; H61.23 Impacted cerumen, bilateral; F41.0 Panic disorder [episodic paroxysmal anxiety]; G47.00 Insomnia, unspecified; M25.511 Pain in right shoulder; J34.9 Unspecified disorder of nose and nasal sinuses

== ENCOUNTER → 2025-01-03 10:27 | Outpatient (BNVA) | payer BC, SELFPAY | DX: H61.23 Impacted cerumen, bilateral (principal); F32.9 Major depressive disorder, single episode, unspecified; F41.9 Anxiety disorder, unspecified; F41.0 Panic disorder [episodic paroxysmal anxiety]; G47.00 Insomnia, unspecified; M25.511 Pain in right shoulder; J34.9 Unspecified disorder of nose and nasal sinuses | CPT/HCPCS: 69210; 96127 ==